=== PATIENT | male | born 1980 | race American Indian/Alaskan Native ===

== ENCOUNTER 2017-01-13 16:40 | Emergency (ER) | payer OTHER ==
[2017-01-13] MEDS ORDERED: PEPCID PO ONE (19:40)
[2017-01-13] MEDS ORDERED: DECADRON IM STA (19:40)
[2017-01-13] MEDS ORDERED: DECADRON ONE (19:51)
--- NOTE | 2017-01-13 20:36 | Emergency Department Report ---
Entered by MINE CARTER, acting as scribe for SOFÍA NOEL PA. ED Rash HPI - HPI Chief Complaint: Allergic Reaction Stated Complaint: INSECT BITE ON ABD Time Seen by Provider: 01/13/17 19:28 Duration: 1 Day Location: Abdomen Suspected Cause: Insect Rash Symptoms: Yes Itching, No Facial Swelling, No Tongue/Oral Swelling, No Breathing Difficulties, No Choking Sensation, No Wheezing/Dyspnea, No Peeling, No Blistering, No Fever, No Lightheaded, No Malaise, No Myalgias Severity: mild Other History: 36 y/o male presents to the ED c/o rash due to insect bite on abdomen yesterday. Asociated sympotoms include redness, swelling, pain and itching but he denies SOB, chest pain, fever, chills, nausea, vomiting. Pain is described as 8/10 on a severity scale. Denies taking any meds [employer]. No alleviating or aggravating factors. NKDA. ED Review of Systems ROS: Stated complaint: INSECT BITE ON ABD Other details as noted in HPI Comment: All other systems reviewed and negative Constitutional: denies: chills, fever ENT: denies: throat pain, congestion Respiratory: denies: cough, shortness of breath, SOB with exertion, SOB at rest , stridor, wheezing Cardiovascular: denies: chest pain Gastrointestinal: denies: abdominal pain, nausea, vomiting, diarrhea Musculoskeletal: denies: back pain, arthralgia, myalgia Skin: rash, other (redness, swelling, itching) Neurological: denies: headache, paresthesias, abnormal gait ED Past Medical Hx - Past Medical History Previous Medical History?: Yes Hx Hypertension: Yes Additional medical history: allergies - Surgical History Past Surgical History?: No - Family History Family history: no significant - Social History Smoking Status: Never Smoker Substance Use Type: None - Medications Home Medications: Home Medications Medication Instructions Recorded Confirmed Last Taken Type Hyoscyamine Subl [Levsin Sl] 0.125 mg SL Q4HR PRN #12 tablet 05/19/13 Unknown Rx Ondansetron [Zofran Odt] 4 mg PO QID #12 tab.rapdis 05/19/13 Unknown Rx Famotidine [Pepcid] 10 mg PO BID #20 tablet 06/08/13 Unknown Rx Metoclopramide HCl [Reglan] 10 mg PO TID PRN #20 tablet 06/09/13 Unknown Rx Acetaminophen/Codeine 1 tab PO Q6H PRN #15 tab 04/15/14 Unknown Rx [Acetaminophen-Codeine #3 TAB] Ondansetron [Zofran Odt] 4 mg PO Q6H #12 tab.rapdis 04/15/14 Unknown Rx Penicillin Vk [Veetids TAB] 500 mg PO BID #20 tablet 04/15/14 Unknown Rx Cephalexin [Keflex] 500 mg PO Q12HR #14 cap 01/13/17 Unknown Rx Famotidine [Pepcid] 40 mg PO QDAY #5 tablet 01/13/17 Unknown Rx hydrOXYzine HCL [Atarax] 25 mg PO Q6HR PRN #12 tablet 01/13/17 Unknown Rx predniSONE [Deltasone] 50 mg PO QDAY #5 tab 01/13/17 Unknown Rx Rash Exam - Exam General: Vital signs noted. No distress. Alert and acting appropriately. This is a 36-year-old male well-nourished well-developed in no acute distress HEENT: No Periorbital Edema, No Conjuctival Injection, No Chemosis, No Perioral Edema, No Tongue Edema, No Uvular Edema, No Compromised Airway, No Drooling Lungs: Yes Good Air Exchange (clear to auscultate bilaterally. No rhonchi wheezes or rales), No Wheezes, No Ronchi, No Stridor, No Cough, No Labored Respirations, No Retractions, No Use of Accessory Muscles, No Other Abnormal Lung Sounds Heart: Yes Regular, No Murmur Skin: Yes Urticarial Rash (umbilical area to mid lower abdomen), Yes Tenderness (at rash site), Yes Erythema (umbilical area to mid lower abdomen), Yes Edema ( umbilical area to mid lower abdomen), No Maculopapular Rash, No Morbilliform rash, No Bulla(e), No Excoriations, No Weeping, No Encrustations, No Other Other: Positive: Abdomen Normal, Neurologic Normal, Musculoskeletal Normal ED Course Vital Signs 01/13/17 18:03 Temperature 98.9 F Pulse Rate 83 Respiratory 16 Rate Blood Pressure 142/100 O2 Sat by Pulse 100 Oximetry Vital Signs 01/13/17 01/13/17 18:03 20:24 Temperature 98.9 F Pulse Rate 83 Respiratory 16 Rate Blood Pressure 142/100 Blood Pressure 140/92 [Left] O2 Sat by Pulse 100 Oximetry - Reevaluation(s) Reevaluation #1: 01/13/17 20:24 She given Decadron 10 mg IM in the emergency room along with Pepcid 40 mg by mouth for allergic reaction. ED Medical Decision Making - Medical Decision Making ED course: With minor allergic reaction from insect bite. Said this And yesterday when he was doing yard work but he is not sure what kind of insect it was. Ordering redness and swelling to his abdominal area with itching. Physical findings for urticarial rash with pinpoint open into Center for rash. Will cover for allergic reaction and mild cellulitis. Patient received Decadron 10 mg IM and Pepcid 40 mg by mouth in emergency room. Discharge home to follow-up with his primary care physician in 2 days and if he does not have one to follow up at [facility]. PT had no respiratory symptoms. Medication: Patient given Pepcid 40 mg by mouth and Decadron 10 mg IM and emergency room. He'll be covered for cellulitis and allergic reaction and was given prescription for prednisone, Keflex, Atarax and Pepcid Assessment/plan 1. Minor allergic reaction versus cellulitis 2. Insect bite 3. Pruritus Patient discharged home in stable condition to follow up with primary care physician in 2 days or return to the emergency room if worsening Critical care attestation.: If time is entered above; I have spent that time in minutes in the direct care of this critically ill patient, excluding procedure time. ED Disposition Clinical Impression: Cellulitis of abdominal wall, Pruritus of skin Minor allergic reaction Qualifiers: Encounter type: initial encounter Qualified Code(s): T78.40XA - Allergy, unspecified, initial encounter Insect bite Qualifiers: Encounter type: initial encounter Qualified Code(s): W57.XXXA - Bitten or stung by nonvenomous insect and other nonvenomous arthropods, initial encounter Disposition: -01 TO HOME OR SELFCARE Is pt being admited?: No Does the pt Need Aspirin: No Condition: Stable Instructions: Cellulitis (ED), Itchy Skin (ED), Insect Bite or Sting (ED), Urticaria (ED) Additional Instructions: Please take medication as instructed Follow up with primary care physician or [facility] in 2 days If you develop, coughing, wheezing, shortness of breath, increased redness abdomen and her difficulty breathing please return to the emergency room [facility] Prescriptions: Cephalexin [Keflex] 500 mg PO Q12HR #14 cap Famotidine [Pepcid] 40 mg PO QDAY #5 tablet hydrOXYzine HCL [Atarax] 25 mg PO Q6HR PRN #12 tablet PRN Reason: Itching predniSONE [Deltasone] 50 mg PO QDAY #5 tab Referrals: PRIMARY CARE, [Primary Care Provider] - 01/15/17 [facility] [Outside] - 01/15/17 Forms: Accompanied Note, Work/School Release Form(ED) This documentation as recorded by the RAUL gunderson ELIZABETH,accurately reflects the service I personally performed and the decisions made by me,SOFÍA NOEL PA.
[2017-01-13 21:23] VITALS: BP 137/85
== END 2017-01-13 21:23 | disposition home or self-care (01) ==
LOC: ED 16:40
DX: L03.311 Cellulitis of abdominal wall (principal); T78.40XA Allergy, unspecified, initial encounter; L29.9 Pruritus, unspecified; I10 Essential (primary) hypertension; W57.XXXA Bitten or stung by nonvenomous insect and other nonvenomous arthropods, initial encounter; Y93.89 Activity, other specified; Y99.9 Unspecified external cause status; Y92.89 Other specified places as the place of occurrence of the external cause
CPT/HCPCS: 96372; 99282; J1100

== ENCOUNTER 2017-12-01 19:38 | Emergency (ER) | payer OTHER ==
[2017-12-01] MEDS ORDERED: ZOFRAN ONE (20:14)
[2017-12-01] MEDS ORDERED: ZOFRAN IV ONE (20:31)
[2017-12-01 21:32] LABS: Basophils # (Auto) 0.1 K/mm3 (0.0-0.1); Basophils % (Auto) 0.7 % (0.0-1.8); Eosinophils # (Auto) 0.2 K/mm3 (0.0-0.4); Eosinophils % (Auto) 1.7 % (0.0-4.3); Hematocrit 38.9 % (35.5-45.6); Hemoglobin 12.8 gm/dl (11.8-15.2); Lymphocytes # (Auto) 3.1 K/mm3 (1.2-5.4); Lymphocytes % (Auto) 23.9 % (13.4-35.0); Mean Corpuscular HGB Conc 33 % (32-34); Mean Corpuscular Hemoglobin 30 pg (28-32); Mean Corpuscular Volume 90 fl (84-94); Monocytes % (Auto) 7.3 % (0.0-7.3); Platelet Count 352 K/mm3 (140-440); Red Cell Distribution Width 13.5 % (13.2-15.2)
[2017-12-01 21:56] LABS: Alanine Aminotransferase 19 units/L (7-56); Albumin 4.3 g/dL (3.9-5); BUN/Creatinine Ratio 17; Blood Urea Nitrogen 19 mg/dL (9-20); Calcium 9.6 mg/dL (8.4-10.2); Hemolysis Index 14
[2017-12-02] MEDS ORDERED: LIDOCAINE VISCOUS 2% PO ONE (02:30)
[2017-12-02] MEDS ORDERED: ALUM-MAG HYDROX-SIMETH 200-200-20MG/5ML PO ONE (02:30)
[2017-12-02] MEDS ORDERED: BENTYL PO ONE (02:30)
--- NOTE | 2017-12-02 02:30 | Emergency Department Report ---
Vomiting/Diarrhea - HPI Chief Complaint: Nausea/Vomiting/Diarrhea Stated Complaint: ABDOMINAL PAIN,VOMITING Time Seen by Provider: 12/02/17 02:17 Duration: Today Severity: mild Nausea/Vomiting Severity: Moderate Diarrhea Severity: None Pain Location: Generalized Pain Severity: Mild (10/10 and cramping) Symptoms: Yes Able to Tolerate Fluids, Yes Recent Unusual Foods (chicken pot pie ), No Watery Diarrhea, No Bloody diarrhea, No Fever, No Recent Untreated Water, No Recent use of Antibiotics, No Family w/ Similar Symptoms, No Contacts w/ Similar Symptoms, No Rash, No Hematuria, No Recent URI Symptoms Other History: This is a 37-year-old male here reports that he had some chicken pie leftover and he ate at 1801 hour later he started having vomiting, nausea and some abdominal cramping. Abdominal cramping is 10 out of 10 but better now. He said he vomited 3 times today and had nausea. Denies any fever or chills. Patient blood pressure is 152/107 and has history of high blood pressure without any medication. Denies any urinary burning frequency or urgency. Denies any blood in his urine. Denies any back pain. Denies any chest pain or shortness of breath. Pain is crampy and intermittent. No medication taken. ED Review of Systems ROS: Stated complaint: ABDOMINAL PAIN,VOMITING Other details as noted in HPI Constitutional: denies: chills, fever Eyes: denies: eye discharge ENT: denies: ear pain, throat pain, congestion Respiratory: denies: cough, shortness of breath, SOB with exertion, SOB at rest , wheezing Cardiovascular: denies: chest pain, palpitations, edema, syncope Gastrointestinal: abdominal pain, nausea, vomiting. denies: diarrhea, constipation, hematemesis, melena, hematochezia Genitourinary: denies: urgency, dysuria, frequency, hematuria, discharge Musculoskeletal: denies: back pain, joint swelling, arthralgia, myalgia Skin: denies: rash, lesions Neurological: denies: headache, weakness, vertigo ED Past Medical Hx - Past Medical History Previous Medical History?: Yes Hx Hypertension: Yes Additional medical history: allergies - Surgical History Past Surgical History?: No - Family History Family history: hypertension - Social History Smoking Status: Never Smoker Substance Use Type: None - Medications Home Medications: Home Medications Medication Instructions Recorded Confirmed Last Taken Type Hyoscyamine Subl [Levsin Sl] 0.125 mg SL Q4HR PRN #12 tablet 05/19/13 Unknown Rx Ondansetron [Zofran Odt] 4 mg PO QID #12 tab.rapdis 05/19/13 Unknown Rx Famotidine [Pepcid] 10 mg PO BID #20 tablet 06/08/13 Unknown Rx Metoclopramide HCl [Reglan] 10 mg PO TID PRN #20 tablet 06/09/13 Unknown Rx Acetaminophen/Codeine 1 tab PO Q6H PRN #15 tab 04/15/14 Unknown Rx [Acetaminophen-Codeine #3 TAB] Ondansetron [Zofran Odt] 4 mg PO Q6H #12 tab.rapdis 04/15/14 Unknown Rx Penicillin Vk [Veetids TAB] 500 mg PO BID #20 tablet 04/15/14 Unknown Rx Cephalexin [Keflex] 500 mg PO Q12HR #14 cap 01/13/17 Unknown Rx Famotidine [Pepcid] 40 mg PO QDAY #5 tablet 01/13/17 Unknown Rx hydrOXYzine HCL [Atarax] 25 mg PO Q6HR PRN #12 tablet 01/13/17 Unknown Rx predniSONE [Deltasone] 50 mg PO QDAY #5 tab 01/13/17 Unknown Rx Dicyclomine [Bentyl] 20 mg PO Q8H 3 Days #9 tablet 12/02/17 Unknown Rx Promethazine [Phenergan TAB] 25 mg PO Q8HR PRN #12 tab 12/02/17 Unknown Rx Vomiting Diarrhea Exam - Exam General: Vital signs noted. No distress. Alert and acting appropriately. This is a 29-year-old male, patient is nontoxic in appearance. He is alert oriented in no acute distress. HEENT: Yes Moist Mucous Membranes (moist, uvula midline and oral airways patent) , No Pharyngeal Erythema, No Pharyngeal Exudates, No Rhinorrhea, No Conjuctival Injection, No Frontal Tenderness, No Maxillary Tenderness Neck: No Adenopathy, No Rigidity (supple, full range of motion) Lungs: Yes Clear Lung Sounds (CTAB), Yes Good Air Exchange, No Wheezes, No Stridor, No Cough, No Nasal Flaring, No Retractions, No Use of Accessory Muscles Heart exam: Regular: Yes (S1-S2 ), Murmur: No, Tachycardia: Yes (108) Abdomen: Tenderness: No ( NTTP in all quadrants), Peritoneal Signs: No, Distention: No, Hyperactive Bowel sounds: No Skin exam: Rash: No, Edema: No, Normal turgor: Yes Neurologic: Alert and oriented 3. No focal deficits. Musculoskeletal: Unremarkable. ED Course Vital Signs 12/01/17 19:37 Temperature 99.1 F Pulse Rate 108 H Respiratory 18 Rate Blood Pressure 152/107 O2 Sat by Pulse 98 Oximetry Vital Signs 12/01/17 12/02/17 12/02/17 19:37 02:58 03:12 Temperature 99.1 F Pulse Rate 108 H 91 H Respiratory 18 Rate Blood Pressure 152/107 Blood Pressure 132/84 [Right] O2 Sat by Pulse 98 99 Oximetry - Reevaluation(s) Reevaluation #1: 12/02/17 02:31 Patient given Zofran 8 mg IV in triage or any voice that is nauseous relief. Occasional stomach cramp . Started on oral hydration, Bentyl 40 mg by mouth, lidocaine 15 cc by mouth and Maalox 15 cc by mouth. I will reevaluate. Reevaluation #2: 12/02/17 03:05 Patient better after Bentyl, lidocaine and Maalox by mouth. He is able to tolerate 4 cups of apple juice without any nausea vomiting or abdominal cramping. ED Medical Decision Making - Lab Data Result diagrams: 12/01/17 20:42 12/01/17 20:42 Lab Results 12/01/17 12/01/17 Range/Units 20:42 20:42 WBC 13.0 H (4.5-11.0) K/mm3 RBC 4.30 (3.65-5.03) M/mm3 Hgb 12.8 (11.8-15.2) gm/dl Hct 38.9 (35.5-45.6) % MCV 90 (84-94) fl MCH 30 (28-32) pg MCHC 33 (32-34) % RDW 13.5 (13.2-15.2) % Plt Count 352 (140-440) K/mm3 Lymph % (Auto) 23.9 (13.4-35.0) % [place] % (Auto) 7.3 (0.0-7.3) % Eos % (Auto) 1.7 (0.0-4.3) % Baso % (Auto) 0.7 (0.0-1.8) % Lymph # 3.1 (1.2-5.4) K/mm3 [place] # 1.0 H (0.0-0.8) K/mm3 Eos # 0.2 (0.0-0.4) K/mm3 Baso # 0.1 (0.0-0.1) K/mm3 Seg Neutrophils % 66.4 (40.0-70.0) % Seg Neutrophils # 8.6 H (1.8-7.7) K/mm3 Sodium 138 (137-145) mmol/L Potassium 3.9 (3.6-5.0) mmol/L Chloride 99.0 (98-107) mmol/L Carbon Dioxide 22 (22-30) mmol/L Anion Gap 21 mmol/L BUN 19 (9-20) mg/dL Creatinine 1.1 (0.8-1.5) mg/dL Estimated GFR > 60 ml/min BUN/Creatinine Ratio 17 % Glucose 214 H (75-100) mg/dL Calcium 9.6 (8.4-10.2) mg/dL Total Bilirubin 0.40 (0.1-1.2) mg/dL AST 24 (5-40) units/L ALT 19 (7-56) units/L Alkaline Phosphatase 70 (35-129) units/L Total Protein 8.0 (6.3-8.2) g/dL Albumin 4.3 (3.9-5) g/dL Albumin/Globulin Ratio 1.2 % - Medical Decision Making This is a 37-year-old male patient here reports that he ate leftover chicken pot pie this evening and one hour later he started having nausea and vomiting with abdominal cramping. He is here to be evaluated. Patient was examined by myself and abdominal exam is normal. He had CBC and CMP done and values are stable. Patient was orally hydrated in emergency room with 3 cups of juice and he tolerated well without any nausea vomiting or abdominal cramping. Patient received Zofran 8 mg IV and triage which relieved his nausea, he had no episode of vomiting while in the emergency room. He received Bentyl 40 mg by mouth for several cramping and Maalox 15 mL, lidocaine 15 mL and stomach cramping is relieved. I discussed this patient as diagnosis, laboratory findings and treatment plan and he voiced understanding. She would mild tachycardia when he came in which has resolved and his blood pressure was slightly elevated but is better. Patient with nausea and vomiting suspect from food poisoning-this is better after oral hydration, Zofran IV Abdominal cramping-better after Maalox, lidocaine and Bentyl Patient education and medication, treatment plan, labs, diagnosis, BRAT diet. I discussed with him that if his symptoms return to return to emergency room [facility] otherwise follow up with primary care physician if he does not have a primary care physician to follow up with [facility] in 2 days and he voiced understanding. Discharged home in stable condition, vital signs are stable and he is afebrile. He said he is better. Nausea and vomiting has resolved with abdominal cramping. He is to follow-up at [facility] in 2 days. Discharged home with prescription for Bentyl, Phenergan. - Differential Diagnosis food poisoning, acute nausea and vomiting,Electrolyte imbalance Critical care attestation.: If time is entered above; I have spent that time in minutes in the direct care of this critically ill patient, excluding procedure time. ED Disposition Clinical Impression: Abdominal cramping Nausea & vomiting Qualifiers: Vomiting type: unspecified Vomiting Intractability: non-intractable Qualified Code(s): R11.2 - Nausea with vomiting, unspecified Disposition: DC-01 TO HOME OR SELFCARE Is pt being admited?: No Does the pt Need Aspirin: No Condition: Stable Instructions: Abdominal Pain (ED), Acute Nausea and Vomiting (ED) Additional Instructions: Please eat low residual food such as banana, rice, applesauce and toast for the next 72 hours to rest his stomach. Avoid spicy and carbonated beverages over the next 72 hours Increase her fluid intake Take Bentyl for abdominal cramping and Phenergan for nausea and her vomiting blood please do not drive or operate heavy machinery while taking Phenergan as it causes drowsiness Follow-up at [facility] primary care in 2 days. Few symptoms return, or worsens, Return to emergency room if AP Prescriptions: Dicyclomine [Bentyl] 20 mg PO Q8H 3 Days #9 tablet Promethazine [Phenergan TAB] 25 mg PO Q8HR PRN #12 tab PRN Reason: Nausea And Vomiting Referrals: PRIMARY CARE, [Primary Care Provider] - 12/04/17 [facility] [Outside] - 12/04/17 Forms: Work/School Release Form(ED)
[2017-12-02 03:12] VITALS: BP 132/84
== END 2017-12-02 03:41 | disposition home or self-care (01) ==
LOC: ED 19:38
DX: R10.84 Generalized abdominal pain (principal); R11.2 Nausea with vomiting, unspecified; I10 Essential (primary) hypertension
CPT/HCPCS: 36415; 80053; 85025; 96374; 99283; J2405

== ENCOUNTER 2017-12-23 21:51 | Emergency (ER) | payer OTHER ==
[2017-12-23] MEDS ORDERED: NACL 0.9% 1000 ML 1,000 ML IV ONE (22:28)
[2017-12-23] MEDS ORDERED: ZOFRAN IM ONE (22:29)
[2017-12-23 23:10] LABS: Basophils % (Auto) 0.7 % (0.0-1.8); Eosinophils # (Auto) 0.3 K/mm3 (0.0-0.4); Eosinophils % (Auto) 3.9 % (0.0-4.3); Hematocrit 42.6 % (35.5-45.6); Lymphocytes # (Auto) 2.5 K/mm3 (1.2-5.4); Lymphocytes % (Auto) 35.7 % (13.4-35.0); Mean Corpuscular HGB Conc 33 % (32-34); Mean Corpuscular Hemoglobin 30 pg (28-32); Mean Corpuscular Volume 91 fl (84-94); Monocytes # (Auto) 0.8 K/mm3 (0.0-0.8); Monocytes % (Auto) 12.2 % (0.0-7.3); Platelet Count 297 K/mm3 (140-440); Red Blood Count 4.67 M/mm3 (3.65-5.03); Red Cell Distribution Width 13.2 % (13.2-15.2)
[2017-12-23 23:19] LABS: Alanine Aminotransferase 22 units/L (7-56); Albumin 4.5 g/dL (3.9-5); BUN/Creatinine Ratio 11; Blood Urea Nitrogen 14 mg/dL (9-20); Calcium 9.5 mg/dL (8.4-10.2); Hemolysis Index 14; Lipase 28 units/L (13-60)
[2017-12-23] MEDS ORDERED: TORADOL IV ONE (23:38)
[2017-12-23] MEDS ORDERED: ZOFRAN IV ONE (23:41)
[2017-12-23] MEDS ORDERED: ATIVAN IV ONE (23:41)
--- NOTE | 2017-12-23 23:58 | Emergency Department Report ---
HPI - General Chief Complaint: Abdominal Pain Time Seen by Provider: 12/23/17 23:35 - HPI HPI: The patient is a 37-year-old male who presents for evaluation of abdominal pain. The patient reports upper abdominal pain for the past one hour, constant since onset, cramping in quality, exacerbated with dry heaving, and associated with nausea and multiple episodes of nonbilious, nonbloody emesis. He shares that his symptoms began shortly after consuming fried chicken purchased from the [employer]. The patient denies fever, chills, night sweats, diarrhea, blood in the stool, dark tarry stool, dysuria, hematuria, flank pain, genital discharge, inability to pass flatus. ED Past Medical Hx - Past Medical History Hx Hypertension: Yes Additional medical history: allergies - Surgical History Past Surgical History?: No - Social History Smoking Status: Never Smoker Substance Use Type: None - Medications Home Medications: Home Medications Medication Instructions Recorded Confirmed Last Taken Type Hyoscyamine Subl [Levsin Sl] 0.125 mg SL Q4HR PRN #12 tablet 05/19/13 Unknown Rx Ondansetron [Zofran Odt] 4 mg PO QID #12 tab.rapdis 05/19/13 Unknown Rx Famotidine [Pepcid] 10 mg PO BID #20 tablet 06/08/13 Unknown Rx Metoclopramide HCl [Reglan] 10 mg PO TID PRN #20 tablet 06/09/13 Unknown Rx Acetaminophen/Codeine 1 tab PO Q6H PRN #15 tab 04/15/14 Unknown Rx [Acetaminophen-Codeine #3 TAB] Ondansetron [Zofran Odt] 4 mg PO Q6H #12 tab.rapdis 04/15/14 Unknown Rx Penicillin Vk [Veetids TAB] 500 mg PO BID #20 tablet 04/15/14 Unknown Rx Cephalexin [Keflex] 500 mg PO Q12HR #14 cap 01/13/17 Unknown Rx Famotidine [Pepcid] 40 mg PO QDAY #5 tablet 01/13/17 Unknown Rx hydrOXYzine HCL [Atarax] 25 mg PO Q6HR PRN #12 tablet 01/13/17 Unknown Rx predniSONE [Deltasone] 50 mg PO QDAY #5 tab 01/13/17 Unknown Rx Dicyclomine [Bentyl] 20 mg PO Q8H 3 Days #9 tablet 12/02/17 Unknown Rx Promethazine [Phenergan TAB] 25 mg PO Q8HR PRN #12 tab 12/02/17 Unknown Rx Acetaminophen/Codeine [Tylenol #3] 1 tab PO Q6H PRN #10 tab 12/24/17 Unknown Rx Ondansetron [Zofran TAB] 4 mg PO Q8HR PRN #20 tablet 12/24/17 Unknown Rx ED Review of Systems ROS: Stated complaint: ABD CRAMPS Other details as noted in HPI Constitutional: denies: fever ENT: denies: throat or neck pain Respiratory: denies: cough, shortness of breath Cardiovascular: denies: chest pain Endocrine: denies unexplained weight loss or gain Gastrointestinal: reports abdominal pain, nausea Genitourinary: denies: dysuria Musculoskeletal: denies: leg swelling Skin: denies: rash Neurological: denies: headache Hematological/Lymphatic: denies: easy bleeding or easy bruising Psych: denies sadness or hopelessness Physical Exam - Physical Exam Vital Signs: Vital Signs 12/23/17 12/23/17 22:24 23:24 Temperature 98 F Pulse Rate 104 H 90 Respiratory 16 22 Rate Blood Pressure 144/94 156/106 O2 Sat by Pulse 100 97 Oximetry Physical Exam: General: well-nourished, well-developed, no acute distress Head: Normocephalic, atraumatic Eyes: normal sclera ENT: Mucous membranes are pale and dry Neck: No neck stiffness, no cervical adenopathy Respiratory: Breath sounds equal bilaterally, no wheezing, rales, or rhonchi Cardio: S1 and S2 present, no murmurs, rubs, gallops, capillary refill is delayed Abdomen: Normoactive bowel sounds, soft abdomen, epigastric tenderness to palpation present, no rigidity, no guarding or rebound tenderness Musc: No pitting edema Skin: No rash Neuro: no facial drooping, normal speech Psych: Normal affect ED Course Vital Signs 12/23/17 12/23/17 22:24 23:24 Temperature 98 F Pulse Rate 104 H 90 Respiratory 16 22 Rate Blood Pressure 144/94 156/106 O2 Sat by Pulse 100 97 Oximetry ED Medical Decision Making - Lab Data Result diagrams: 12/23/17 22:39 12/23/17 22:39 - Medical Decision Making The patient was seen and examined by myself. The patient is placed on a conveyor monitor and continuous pulse ox. On initial evaluation, the patient was found to be in no distress. Evaluation orders are placed. IV access is established and the patient is given 1 L normal saline fluid bolus and Zofran for nausea, and IV analgesic for pain. Lab results were non-concerning including WBC, hemoglobin, hematocrit, electrolytes, renal function, LFTs, lipase, and urinalysis. The patient was reevaluated and reported that their symptoms were markedly improved. The patient is stable for discharge with outpatient follow-up. The patient is given follow-up and return instructions. The patient expressed understanding and agreed with the plan. The patient is discharged in stable condition. Critical care attestation.: If time is entered above; I have spent that time in minutes in the direct care of this critically ill patient, excluding procedure time. ED Disposition Clinical Impression: Dehydration, Abdominal pain, acute, epigastric, Nausea and vomiting in adult Disposition: DC-01 TO HOME OR SELFCARE Is pt being admited?: No Does the pt Need Aspirin: No Condition: Stable Instructions: Food Poisoning (ED), Gastroenteritis (ED) Referrals: [facility] [Outside] - 3-5 Days Time of Disposition: 23:58
[2017-12-24 02:18] VITALS: BP 102/70
== END 2017-12-24 02:15 | disposition home or self-care (01) ==
LOC: ED 21:51
DX: E86.0 Dehydration (principal); R10.13 Epigastric pain; R11.2 Nausea with vomiting, unspecified; I10 Essential (primary) hypertension
CPT/HCPCS: 36415; 80053; 83690; 85025; 96361; 96372; 96374; 96375; 99284; J1885; J2060; J2405; J7030

== ENCOUNTER 2018-01-08 08:29 | Emergency (ER) | payer OTHER ==
[2018-01-08] MEDS ORDERED: ZOFRAN ODT PO ONE (08:52)
[2018-01-08] MEDS ORDERED: ZOFRAN ODT ONE (08:54)
[2018-01-08] MEDS ORDERED: TORADOL IV ONE (10:33)
[2018-01-08] MEDS ORDERED: ZOFRAN IV ONE (10:33)
[2018-01-08] MEDS ORDERED: NACL 0.9% 1000 ML 1,000 ML IV ONE ×2 (10:33→12:12)
[2018-01-08] MEDS ORDERED: PEPCID IV ONE (10:34)
--- NOTE | 2018-01-08 10:37 | Emergency Department Report ---
Blank Doc - Documentation Documentation: 37-year-old male with a past medical history hypertension presents to the hospital complains of recurrent nausea, vomiting, and diarrhea started this morning. Patient was seen here on December 24 with similar symptoms after eating chicken. He reports he felt better after discharge and did not even really need to take any of the medication prescribed with the exception of 2 doses of Tylenol No. 3. Patient tried to take the Zofran this a.m. but continues to vomit. Complains of moderate left-sided cramping abdominal pain. He has nausea , vomiting, and diarrhea. He denies hematemesis, hematochezia, fever, recent travel, or sick contacts. No previous abdominal surgeries. Patient has mild left-sided abd tenderness. Continues to have active vomiting despite receiving by mouth Zofran prior to my evaluation Patient was here in November and December with nausea, vomiting, and diarrhea. Labs ordered CT ordered Zofran, normal saline, Toradol, and Pepcid initiated Mid level to follow
[2018-01-08 10:55] LABS: Basophils # (Auto) 0.1 K/mm3 (0.0-0.1); Basophils % (Auto) 0.4 % (0.0-1.8); Eosinophils % (Auto) 0.3 % (0.0-4.3); Hematocrit 44.5 % (35.5-45.6); Hemoglobin 14.5 gm/dl (11.8-15.2); Lymphocytes # (Auto) 1.3 K/mm3 (1.2-5.4); Lymphocytes % (Auto) 11.2 % (13.4-35.0); Mean Corpuscular HGB Conc 33 % (32-34); Mean Corpuscular Hemoglobin 29 pg (28-32); Mean Corpuscular Volume 90 fl (84-94); Monocytes % (Auto) 8.2 % (0.0-7.3); Platelet Count 389 K/mm3 (140-440); Red Blood Count 4.96 M/mm3 (3.65-5.03)
[2018-01-08 11:19] LABS: Alanine Aminotransferase 32 units/L (7-56); Albumin 4.5 g/dL (3.9-5); BUN/Creatinine Ratio 13; Blood Urea Nitrogen 15 mg/dL (9-20); Calcium 9.6 mg/dL (8.4-10.2); Hemolysis Index 4
[2018-01-08 11:40] LABS: Lipase 24 units/L (13-60)
--- NOTE | 2018-01-08 11:40 | Emergency Department Report ---
Vomiting/Diarrhea - HPI Chief Complaint: Abdominal Pain Stated Complaint: STOMACH CRAMPS Time Seen by Provider: 01/08/18 10:21 Duration: 1 Day Severity: mild Nausea/Vomiting Severity: Mild Diarrhea Severity: None Pain Location: Left Sided Pain Severity: Mild Symptoms: Yes Able to Tolerate Fluids, No Watery Diarrhea, No Bloody diarrhea, No Fever, No Recent Unusual Foods, No Recent Untreated Water, No Recent use of Antibiotics, No Family w/ Similar Symptoms, No Contacts w/ Similar Symptoms, No Rash, No Hematuria, No Recent URI Symptoms Other History: This is a 37-year-old male presents with nausea , vomiting, and diarrhea which started this morning. No previous abdominal surgeries. Past medical history of hypertension. Patient was seen here on December 24 with similar symptoms after eating chicken. He was discharged with medication. Patient states he felt better and dign't have to take medication. He ate [place] food last night and felt fine. He started having left sided abdominal pain this morning and on the way here started vomiting. Patient states he took zofran and tylenol with codeine that was prescribed on last visit. Complains of moderate left-sided cramping abdominal pain. He has nausea , vomiting, and diarrhea. He denies hematemesis, hematochezia, fever, recent travel, or sick contacts. ED Review of Systems ROS: Stated complaint: STOMACH CRAMPS Other details as noted in HPI Constitutional: denies: chills, fever Respiratory: denies: cough, shortness of breath, wheezing Cardiovascular: denies: chest pain, palpitations Gastrointestinal: abdominal pain (left-sided abdominal pain), nausea, vomiting. denies: diarrhea Genitourinary: denies: urgency, dysuria Neurological: denies: headache, weakness, paresthesias Psychiatric: denies: anxiety, depression ED Past Medical Hx - Past Medical History Previous Medical History?: Yes Hx Hypertension: Yes Additional medical history: allergies - Surgical History Past Surgical History?: No - Social History Smoking Status: Never Smoker Substance Use Type: None - Medications Home Medications: Home Medications Medication Instructions Recorded Confirmed Last Taken Type Hyoscyamine Subl [Levsin Sl] 0.125 mg SL Q4HR PRN #12 tablet 05/19/13 Unknown Rx Ondansetron [Zofran Odt] 4 mg PO QID #12 tab.rapdis 05/19/13 Unknown Rx Famotidine [Pepcid] 10 mg PO BID #20 tablet 06/08/13 Unknown Rx Metoclopramide HCl [Reglan] 10 mg PO TID PRN #20 tablet 06/09/13 Unknown Rx Acetaminophen/Codeine 1 tab PO Q6H PRN #15 tab 04/15/14 Unknown Rx [Acetaminophen-Codeine #3 TAB] Ondansetron [Zofran Odt] 4 mg PO Q6H #12 tab.rapdis 04/15/14 Unknown Rx Penicillin Vk [Veetids TAB] 500 mg PO BID #20 tablet 04/15/14 Unknown Rx Famotidine [Pepcid] 40 mg PO QDAY #5 tablet 01/13/17 Unknown Rx cephALEXin [Keflex] 500 mg PO Q12HR #14 cap 01/13/17 Unknown Rx hydrOXYzine HCL [Atarax] 25 mg PO Q6HR PRN #12 tablet 01/13/17 Unknown Rx predniSONE [Deltasone] 50 mg PO QDAY #5 tab 01/13/17 Unknown Rx Dicyclomine [Bentyl] 20 mg PO Q8H 3 Days #9 tablet 12/02/17 Unknown Rx Promethazine [Phenergan TAB] 25 mg PO Q8HR PRN #12 tab 12/02/17 Unknown Rx Acetaminophen/Codeine [Tylenol #3] 1 tab PO Q6H PRN #10 tab 12/24/17 Unknown Rx Ondansetron [Zofran TAB] 4 mg PO Q8HR PRN #20 tablet 12/24/17 Unknown Rx Vomiting Diarrhea Exam - Exam General: Vital signs noted. No distress. Alert and acting appropriately. HEENT: Yes Moist Mucous Membranes, No Pharyngeal Erythema, No Pharyngeal Exudates, No Rhinorrhea, No Conjuctival Injection, No Frontal Tenderness, No Maxillary Tenderness Neck: No Adenopathy, No Rigidity Lungs: Yes Clear Lung Sounds, Yes Good Air Exchange, No Wheezes, No Stridor, No Cough, No Nasal Flaring, No Retractions, No Use of Accessory Muscles Heart exam: Regular: Yes, Murmur: No, Tachycardia: No Abdomen: Tenderness: Yes (left upper quadrant), Peritoneal Signs: No, Distention : No, Hyperactive Bowel sounds: No Skin exam: Rash: No, Edema: No, Normal turgor: Yes Neurologic: Alert and oriented, no deficits. Musculoskeletal: Unremarkable. ED Course Vital Signs 01/08/18 01/08/18 01/08/18 08:45 10:59 11:00 Temperature 97.8 F Pulse Rate 88 Respiratory 18 18 18 Rate Blood Pressure 151/102 O2 Sat by Pulse 100 Oximetry ED Medical Decision Making - Lab Data Result diagrams: 01/08/18 10:45 01/08/18 10:45 - Radiology Data Radiology results: report reviewed, image reviewed FINAL REPORT EXAM: CT ABDOMEN PELVIS W CON HISTORY: left sided abd pain, reccurrent n,v,d TECHNIQUE: CT of the abdomen and pelvis with IV contrast. Coronal and sagittal reconstructed imaging provided. PRIORS: None currently available. FINDINGS: ABDOMEN: Kidneys: Decreased cortical enhancement of the left kidney identified. Perinephric stranding identified. There is a punctate stone measuring 2.8 mm in the mid left kidney. Left hydronephrosis down to the UVJ where there is a 4.8 x 6.1 mm stone. No hydronephrosis or ureteral stone. No suspicious enhancing lesions. Liver, gallbladder, stomach, spleen, pancreas, and adrenals are unremarkable. There is no abdominal aortic aneurysm. No dissection. Mild atherosclerotic disease noted. IVC is unremarkable. There is no periaortic or retroperitoneal adenopathy or mass. Collapsed left colon limits evaluation for wall thickening. Mild colitis is not entirely excluded. Qftl-cf-khhyjteo stool in the remainder of the colon without wall thickening or inflammatory changes. Terminal ileum is unremarkable. The appendix is not identified. There are no pericecal inflammatory changes. Small bowel loops are unremarkable. No obstructive pattern. No free air. No free fluid. Mesentery is unremarkable. PELVIS: Limited images of the prostate are unremarkable. Bladder is unremarkable. There is no pelvic mass or adenopathy. Inguinal regions are unremarkable. Bones: No suspicious osseous lesions on this limited examination of the skeleton. Metastatic disease better evaluated with bone scan. Degenerative changes are in the spine. IMPRESSION: Left UVJ stone causing obstructive uropathy. Bilateral renal stones. No right hydronephrosis. - Medical Decision Making Patient is stable and was examined by me and Dr. Godoy. Vitals stable. Labs and CT of abdomen and pelvis obtained. Given zofran, morphine, Toradol, and normal saline bolus. Consults a urology Dr. Lopez. Informed of Left UVJ stone causing obstructive uropathy. Bilateral renal stones. No right hydronephrosis. Patient evaluated by Dr. Lopez who decided to have patient f/u in office. Dr. Lopez gave patient prescriptions for zofran, flomax, ultram, and norco. Patient will f/u with him in 1-2 weeks. Discharged home in stable condition. Follow up with PCP in 2-3 days. Critical care attestation.: If time is entered above; I have spent that time in minutes in the direct care of this critically ill patient, excluding procedure time. ED Disposition Clinical Impression: Bilateral kidney stones, Renal colic on left side Disposition: TO HOME OR SELFCARE Is pt being admited?: No Does the pt Need Aspirin: No Condition: Stable Instructions: Kidney Stones (ED), Renal Colic (ED), How to Strain Your Urine ( ED) Additional Instructions: Increase fluid intake to 2 L per day. Change diet to low-protein and a low-sodium diet to prevent reoccurrence. Strain urine to observe for passing stones. Follow-up with primary care doctor in 2-3 days. Follow-up with urology in 1-2 weeks for management of kidney stones. Referrals: LINDSAY LOPEZ MD [Staff Physician] - 3-5 Days GIAN PERKINS MD [Staff Physician] - 3-5 Days Forms: Work/School Release Form(ED) Time of Disposition: 13:24 Print Language: AUSTRIAN
--- NOTE | 2018-01-08 12:05 | Cat Scan Report ---
FINAL REPORT EXAM: CT ABDOMEN PELVIS W CON HISTORY: left sided abd pain, reccurrent n,v,d TECHNIQUE: CT of the abdomen and pelvis with IV contrast. Coronal and sagittal reconstructed imaging provided. PRIORS: None currently available. FINDINGS: ABDOMEN: Kidneys: Decreased cortical enhancement of the left kidney identified. Perinephric stranding identified. There is a punctate stone measuring 2.8 mm in the mid left kidney. Left hydronephrosis down to the UVJ where there is a 4.8 x 6.1 mm stone. No hydronephrosis or ureteral stone. No suspicious enhancing lesions. Liver, gallbladder, stomach, spleen, pancreas, and adrenals are unremarkable. There is no abdominal aortic aneurysm. No dissection. Mild atherosclerotic disease noted. IVC is unremarkable. There is no periaortic or retroperitoneal adenopathy or mass. Collapsed left colon limits evaluation for wall thickening. Mild colitis is not entirely excluded. Ohbg-aj-ihcjnzww stool in the remainder of the colon without wall thickening or inflammatory changes. Terminal ileum is unremarkable. The appendix is not identified. There are no pericecal inflammatory changes. Small bowel loops are unremarkable. No obstructive pattern. No free air. No free fluid. Mesentery is unremarkable. PELVIS: Limited images of the prostate are unremarkable. Bladder is unremarkable. There is no pelvic mass or adenopathy. Inguinal regions are unremarkable. Bones: No suspicious osseous lesions on this limited examination of the skeleton. Metastatic disease better evaluated with bone scan. Degenerative changes are in the spine. IMPRESSION: Left UVJ stone causing obstructive uropathy. Bilateral renal stones. No right hydronephrosis.
[2018-01-08] MEDS ORDERED: MORPHINE IV ONE ×2 (12:16→12:17)
[2018-01-08 12:21] VITALS: BP 151/95
[2018-01-08 13:10] LABS: Bilirubin,Urine NEG (Negative); Blood,Urine NEG (Negative); Color,Urine Colorless (Yellow); Mucus,Urine FEW /HPF; Protein,Urine <15 mg/dL mg/dL (Negative); Urobilinogen,Urine < 2.0 mg/dL (<2.0); WBC,Urine < 1.0 /HPF (0.0-6.0)
--- NOTE | 2018-01-08 13:32 | Consultation ---
History of Present Illness - Reason for Consult Consult date: 01/01/18 - History of Present Illness 37-year-old male with a past medical history hypertension presents to the hospital complains of recurrent nausea, vomiting, and diarrhea started this morning. Patient was seen here on December 24 with similar symptoms after eating chicken. He reports he felt better after discharge and did not even really need to take any of the medication prescribed with the exception of 2 doses of Tylenol No. 3. Patient tried to take the Zofran this a.m. but continues to vomit. Complains of moderate left-sided cramping abdominal pain. He has nausea , vomiting, and diarrhea. He denies hematemesis, hematochezia, fever, recent travel, or sick contacts. No previous abdominal surgeries. + family hx of stones Patient has mild left-sided abd tenderness. Continues to have active vomiting despite receiving by mouth Zofran prior to my evaluation Patient was here in November and December with nausea, vomiting, and diarrhea. CTAP - 4mm left uvj stone, 2mm rt renal stone A/P left uvj stone with pain discussed options - written info given home with ultram, flomax, zofran, norco - scripts on chart given pt strainer appt 1-2 weeks in offfice may need ureteroscopy if symptoms worsen Medications and Allergies Allergies Allergy/AdvReac Type Severity Reaction Status Date / Time No Known Allergies Allergy Unverified 04/24/13 11:18 Home Medications Medication Instructions Recorded Confirmed Last Taken Type Hyoscyamine Subl [Levsin Sl] 0.125 mg SL Q4HR PRN #12 tablet 05/19/13 Unknown Rx Ondansetron [Zofran Odt] 4 mg PO QID #12 tab.rapdis 05/19/13 Unknown Rx Famotidine [Pepcid] 10 mg PO BID #20 tablet 06/08/13 Unknown Rx Metoclopramide HCl [Reglan] 10 mg PO TID PRN #20 tablet 06/09/13 Unknown Rx Acetaminophen/Codeine 1 tab PO Q6H PRN #15 tab 04/15/14 Unknown Rx [Acetaminophen-Codeine #3 TAB] Ondansetron [Zofran Odt] 4 mg PO Q6H #12 tab.rapdis 04/15/14 Unknown Rx Penicillin Vk [Veetids TAB] 500 mg PO BID #20 tablet 04/15/14 Unknown Rx Famotidine [Pepcid] 40 mg PO QDAY #5 tablet 01/13/17 Unknown Rx cephALEXin [Keflex] 500 mg PO Q12HR #14 cap 01/13/17 Unknown Rx hydrOXYzine HCL [Atarax] 25 mg PO Q6HR PRN #12 tablet 01/13/17 Unknown Rx predniSONE [Deltasone] 50 mg PO QDAY #5 tab 01/13/17 Unknown Rx Dicyclomine [Bentyl] 20 mg PO Q8H 3 Days #9 tablet 12/02/17 Unknown Rx Promethazine [Phenergan TAB] 25 mg PO Q8HR PRN #12 tab 12/02/17 Unknown Rx Acetaminophen/Codeine [Tylenol #3] 1 tab PO Q6H PRN #10 tab 12/24/17 Unknown Rx Ondansetron [Zofran TAB] 4 mg PO Q8HR PRN #20 tablet 12/24/17 Unknown Rx Exam - Constitutional Vitals: Temp Pulse Resp BP Pulse Ox 97.7 F 75 15 151/95 100 01/08/18 12:04 01/08/18 12:04 01/08/18 12:04 01/08/18 12:04 01/08/18 12:04 Results - Labs CBC & Chem 7: 01/08/18 10:45 01/08/18 10:45 Labs: Abnormal lab results 01/08/18 01/08/18 Range/Units 10:45 10:45 WBC 11.9 H (4.5-11.0) K/mm3 RDW 13.0 L (13.2-15.2) % Lymph % (Auto) 11.2 L (13.4-35.0) % [place] % (Auto) 8.2 H (0.0-7.3) % [place] # 1.0 H (0.0-0.8) K/mm3 Seg Neutrophils % 79.9 H (40.0-70.0) % Seg Neutrophils # 9.5 H (1.8-7.7) K/mm3 Glucose 124 H (75-100) mg/dL Total Protein 8.3 H (6.3-8.2) g/dL
== END 2018-01-08 14:20 | disposition home or self-care (01) ==
LOC: ED 08:29
DX: N20.2 Calculus of kidney with calculus of ureter (principal); R11.2 Nausea with vomiting, unspecified; I10 Essential (primary) hypertension
CPT/HCPCS: 36415; 74177; 80053; 81001; 83690; 85025; 96361; 96374; 96375; 99284; J1885; J2270; J2405; J7030; Q9967; Q0162

== ENCOUNTER 2019-06-14 00:16 | Emergency (ER) | payer OTHER ==
[2019-06-14 01:47] LABS: Basophils # (Auto) 0.1 K/mm3 (0.0-0.1); Basophils % (Auto) 0.7 % (0.0-1.8); Eosinophils # (Auto) 0.1 K/mm3 (0.0-0.4); Eosinophils % (Auto) 1.4 % (0.0-4.3); Lymphocytes # (Auto) 2.3 K/mm3 (1.2-5.4); Lymphocytes % (Auto) 31.3 % (13.4-35.0); Monocytes # (Auto) 0.6 K/mm3 (0.0-0.8); Monocytes % (Auto) 8.9 % (0.0-7.3)
[2019-06-14 01:57] LABS: Hematocrit 42.3 % (35.5-45.6); Mean Corpuscular HGB Conc 33 % (32-34); Mean Corpuscular Volume 91 fl (84-94); Platelet Count 323 K/mm3 (140-440); Red Blood Count 4.66 M/mm3 (3.65-5.03); Red Cell Distribution Width 13.3 % (13.2-15.2)
[2019-06-14 02:03] LABS: Alanine Aminotransferase 20 units/L (7-56); Albumin 4.4 g/dL (3.9-5); BUN/Creatinine Ratio 13; Blood Urea Nitrogen 16 mg/dL (9-20); Calcium 9.5 mg/dL (8.4-10.2); Hemolysis Index 10
--- NOTE | 2019-06-14 02:55 | Emergency Department Report ---
ED Abdominal Pain HPI - General Chief Complaint: Abdominal Pain Stated Complaint: EMESIS/RT SIDE PAIN Time Seen by Provider: 06/14/19 02:33 Source: patient Mode of arrival: Ambulatory Limitations: No Limitations - History of Present Illness Initial Comments: 38-year-old -Thai male with past medical history hypertension for which she is noncompliant presents emergency department complaining of right flank pain. Reports having a previous history of a renal stone and states that this does feel similar. He reports no fevers, chills, sweats no chest pain or palpitations does has a fifth episode of nausea without vomiting or diarrhea. Reports no dysuria or hematuria. The flank pain is starting to radiate more towards the lower griffiths in the right lower quadrant and a sharp and burning fashion. He is very worried of having another kidney stone like to be evaluated for for that. He reports no foreign travel. Reports no sick contacts. MD Complaint: flank pain Location: R flank Radiation: R flank Severity: severe Quality: sharp Consistency: intermittent Improves With: nothing Worsens With: nothing Associated Symptoms: denies: nausea, vomiting, diarrhea, constipation, dysuria, hematemesis, hematochezia, hematuria, anorexia, syncope - Related Data Previous Rx's Medication Instructions Recorded Last Taken Type Hyoscyamine Subl [Levsin Sl] 0.125 mg SL Q4HR PRN #12 tablet 05/19/13 Unknown Rx Ondansetron [Zofran Odt] 4 mg PO QID #12 tab.rapdis 05/19/13 Unknown Rx Famotidine [Pepcid] 10 mg PO BID #20 tablet 06/08/13 Unknown Rx Metoclopramide HCl [Reglan] 10 mg PO TID PRN #20 tablet 06/09/13 Unknown Rx Acetaminophen/Codeine 1 tab PO Q6H PRN #15 tab 04/15/14 Unknown Rx [Acetaminophen-Codeine #3 TAB] Ondansetron [Zofran Odt] 4 mg PO Q6H #12 tab.rapdis 04/15/14 Unknown Rx Penicillin Vk [Veetids TAB] 500 mg PO BID #20 tablet 04/15/14 Unknown Rx Famotidine [Pepcid] 40 mg PO QDAY #5 tablet 01/13/17 Unknown Rx cephALEXin [Keflex] 500 mg PO Q12HR #14 cap 01/13/17 Unknown Rx hydrOXYzine HCL [Atarax] 25 mg PO Q6HR PRN #12 tablet 01/13/17 Unknown Rx predniSONE [Deltasone] 50 mg PO QDAY #5 tab 01/13/17 Unknown Rx Dicyclomine [Bentyl] 20 mg PO Q8H 3 Days #9 tablet 12/02/17 Unknown Rx Promethazine [Phenergan TAB] 25 mg PO Q8HR PRN #12 tab 12/02/17 Unknown Rx Acetaminophen/Codeine [Tylenol #3] 1 tab PO Q6H PRN #10 tab 12/24/17 Unknown Rx Ondansetron [Zofran TAB] 4 mg PO Q8HR PRN #20 tablet 12/24/17 Unknown Rx Ciprofloxacin HCl [Ciprofloxacin 500 mg PO Q12HR #28 tab 06/14/19 Unknown Rx TAB] Tamsulosin [Flomax] 0.4 mg PO QDAY #10 cap 06/14/19 Unknown Rx traMADoL [Ultram] 50 mg PO Q6HR PRN #20 tablet 06/14/19 Unknown Rx Allergies Allergy/AdvReac Type Severity Reaction Status Date / Time No Known Allergies Allergy Unverified 04/24/13 11:18 ED Review of Systems ROS: Stated complaint: EMESIS/RT SIDE PAIN Other details as noted in HPI Comment: All other systems reviewed and negative ED Past Medical Hx - Past Medical History Previous Medical History?: Yes Hx Hypertension: Yes Additional medical history: allergies - Surgical History Past Surgical History?: No - Social History Smoking Status: Never Smoker Substance Use Type: None - Medications Home Medications: Home Medications Medication Instructions Recorded Confirmed Last Taken Type Hyoscyamine Subl [Levsin Sl] 0.125 mg SL Q4HR PRN #12 tablet 05/19/13 Unknown Rx Ondansetron [Zofran Odt] 4 mg PO QID #12 tab.rapdis 05/19/13 Unknown Rx Famotidine [Pepcid] 10 mg PO BID #20 tablet 06/08/13 Unknown Rx Metoclopramide HCl [Reglan] 10 mg PO TID PRN #20 tablet 06/09/13 Unknown Rx Acetaminophen/Codeine 1 tab PO Q6H PRN #15 tab 04/15/14 Unknown Rx [Acetaminophen-Codeine #3 TAB] Ondansetron [Zofran Odt] 4 mg PO Q6H #12 tab.rapdis 04/15/14 Unknown Rx Penicillin Vk [Veetids TAB] 500 mg PO BID #20 tablet 04/15/14 Unknown Rx Famotidine [Pepcid] 40 mg PO QDAY #5 tablet 01/13/17 Unknown Rx cephALEXin [Keflex] 500 mg PO Q12HR #14 cap 01/13/17 Unknown Rx hydrOXYzine HCL [Atarax] 25 mg PO Q6HR PRN #12 tablet 01/13/17 Unknown Rx predniSONE [Deltasone] 50 mg PO QDAY #5 tab 01/13/17 Unknown Rx Dicyclomine [Bentyl] 20 mg PO Q8H 3 Days #9 tablet 12/02/17 Unknown Rx Promethazine [Phenergan TAB] 25 mg PO Q8HR PRN #12 tab 12/02/17 Unknown Rx Acetaminophen/Codeine [Tylenol #3] 1 tab PO Q6H PRN #10 tab 12/24/17 Unknown Rx Ondansetron [Zofran TAB] 4 mg PO Q8HR PRN #20 tablet 12/24/17 Unknown Rx Ciprofloxacin HCl [Ciprofloxacin 500 mg PO Q12HR #28 tab 06/14/19 Unknown Rx TAB] Tamsulosin [Flomax] 0.4 mg PO QDAY #10 cap 06/14/19 Unknown Rx traMADoL [Ultram] 50 mg PO Q6HR PRN #20 tablet 06/14/19 Unknown Rx ED Physical Exam - General Limitations: No Limitations General appearance: alert, in no apparent distress - Head Head exam: Present: atraumatic, normocephalic - Eye Eye exam: Present: normal appearance, PERRL, EOMI Pupils: Present: normal accommodation - ENT ENT exam: Present: normal exam, normal orophraynx, mucous membranes moist, TM's normal bilaterally - Neck Neck exam: Present: normal inspection, full ROM - Respiratory Respiratory exam: Present: normal lung sounds bilaterally. Absent: respiratory distress, wheezes, rales, rhonchi, chest wall tenderness, accessory muscle use - Cardiovascular Cardiovascular Exam: Present: regular rate, normal rhythm. Absent: systolic murmur, diastolic murmur, rubs, gallop - GI/Abdominal GI/Abdominal exam: Present: soft, normal bowel sounds. Absent: distended, tenderness, guarding, hyperactive bowel sounds, hypoactive bowel sounds, organomegaly, mass - Rectal Rectal exam: Present: deferred - Extremities Exam Extremities exam: Present: normal inspection - Back Exam Back exam: Present: normal inspection. Absent: CVA tenderness (R), CVA tenderness (L), muscle spasm, paraspinal tenderness - Neurological Exam Neurological exam: Present: alert, oriented X3, CN II-XII intact, normal gait - Psychiatric Psychiatric exam: Present: normal affect, normal mood. Absent: anxious, flat affect - Skin Skin exam: Present: warm, dry, intact, normal color. Absent: rash, cyanosis, diaphoretic ED Course Vital Signs 06/14/19 00:24 Temperature 98.9 F Pulse Rate 114 H Respiratory 20 Rate Blood Pressure 177/111 O2 Sat by Pulse 100 Oximetry ED Medical Decision Making - Lab Data Result diagrams: 06/14/19 01:28 06/14/19 01:28 - Medical Decision Making This patient presents with abdominal pain of unclear etiology. A CT scan was performed to evaluate for potential causes of the abdominal pain, however, neither the clinical exam nor the CT has identified an emergent etiology for the abdominal pain. Specifically, given the benign exam, the laboratory studies, and unremarkable CT, I have a very low suspicion for appendicitis, ischemic bowel, bowel perforation, or any other life threatening disease. I have discussed with the patient the level of uncertainty with undifferentiated abd ominal pain and clearly explained the need to follow-up as noted on the discharge instructions, or return to the Emergency Department immediately if the pain worsens, develops fever, persistent and uncontrollable vomiting, or for any new symptoms or concerns. Critical care attestation.: If time is entered above; I have spent that time in minutes in the direct care of this critically ill patient, excluding procedure time. ED Disposition Clinical Impression: Renal calculus, right Is pt being admited?: No Does the pt Need Aspirin: No Condition: Stable Instructions: Kidney Stones (ED) Prescriptions: Ciprofloxacin HCl [Ciprofloxacin TAB] 500 mg PO Q12HR #28 tab Tamsulosin [Flomax] 0.4 mg PO QDAY #10 cap traMADoL [Ultram] 50 mg PO Q6HR PRN #20 tablet PRN Reason: Pain Referrals: PRIMARY CARE, [Primary Care Provider] - 3-5 Days [facility] [Provider Group] - 3-5 Days
--- NOTE | 2019-06-14 03:09 | Cat Scan Report ---
CT scan of the abdomen and pelvis without contrast INDICATION: RT flank and right pelvic pain. TECHNIQUE: All CT scans at this location are performed using the following dose modulation technique: Automated exposure control. The lung bases are clear. No contrast is administered. COMPARISON: CT scan dated 01/08/2018 FINDINGS: Abdomen: There is mild dependent atelectasis in the lung bases. Liver, spleen, pancreas, adrenal glan ds, and small bowel show no acute abnormalities. There are tiny calyceal stones noted in the left kid kellie. There is mild right hydronephrosis. There is a 5 mm stone in the proximal third of the right ure ter. There are no other ureteral calculi. Pelvis: There is a relatively large amount of stool in the rectum and distal sigmoid colon. On review of bone windows, no acute osseous abnormalities are seen. IMPRESSION: 1. There is a 5 mm stone in the proximal third of the right ureter with mild right hydronephrosis. Th ere are very small calyceal stones noted in the left kidney. Signer Name: Donny Awad MD Signed: 06/14/2019 3:04 AM Workstation Name: [id number]
[2019-06-14 03:10] LABS: Bilirubin,Urine NEG (Negative); Blood,Urine MOD (Negative); Color,Urine Yellow (Yellow); Mucus,Urine 1+ /HPF
[2019-06-14 03:43] VITALS: BP 139/83
== END 2019-06-14 03:43 | disposition home or self-care (01) ==
LOC: ED 00:16
DX: N20.0 Calculus of kidney (principal); I10 Essential (primary) hypertension; Z79.899 Other long term (current) drug therapy
CPT/HCPCS: 36415; 74176; 80053; 81001; 83690; 85025

== ENCOUNTER 2019-10-07 01:58 | Emergency (ER) | payer OTHER ==
[2019-10-07 02:32] LABS: Basophils # (Auto) 0.1 K/mm3 (0.0-0.1); Basophils % (Auto) 0.8 % (0.0-1.8); Eosinophils # (Auto) 0.2 K/mm3 (0.0-0.4); Hematocrit 44.4 % (35.5-45.6); Hemoglobin 15.1 gm/dl (11.8-15.2); Lymphocytes # (Auto) 1.8 K/mm3 (1.2-5.4); Lymphocytes % (Auto) 26.5 % (13.4-35.0); Mean Corpuscular HGB Conc 34 % (32-34); Mean Corpuscular Volume 89 fl (84-94); Monocytes # (Auto) 0.7 K/mm3 (0.0-0.8); Monocytes % (Auto) 9.8 % (0.0-7.3); Platelet Count 303 K/mm3 (140-440); Red Cell Distribution Width 12.9 % (13.2-15.2)
[2019-10-07 02:56] LABS: Alanine Aminotransferase 28 units/L (7-56); Albumin 4.4 g/dL (3.9-5); BUN/Creatinine Ratio 23; Blood Urea Nitrogen 25 mg/dL (9-20); Calcium 9.5 mg/dL (8.4-10.2); Hemolysis Index 14
[2019-10-07 05:32] LABS: Bilirubin,Urine NEG (Negative); Blood,Urine NEG (Negative); Color,Urine Yellow (Yellow); Protein,Urine <15 mg/dL mg/dL (Negative); Urobilinogen,Urine < 2.0 mg/dL (<2.0); WBC,Urine < 1.0 /HPF (0.0-6.0)
[2019-10-07 06:14] VITALS: BP 133/91
[2019-10-07] MEDS ORDERED: ONDANSETRON 4 MG ODT TAB PO ONE (08:26)
--- NOTE | 2019-10-07 08:32 | Emergency Department Report ---
ED N/V/D HPI - General Chief complaint: Nausea/Vomiting/Diarrhea Stated complaint: VOMITTING Time Seen by Provider: 10/07/19 07:42 Source: patient Mode of arrival: Ambulatory Limitations: No Limitations - History of Present Illness Initial comments: 39-year-old -[place] male patient with history of hypertension presents with complaints of nausea and vomiting starting around 1 AM last night. Patient reports he ate some eggs around 11 PM and suddenly became nauseous 2 hours later with vomiting and no diarrhea. He denies any hematemesis/coffee-ground emesis, abdominal pain, fever/chills/sweats, cough, congestion, shortness of breath, or chest pain. Patient states he had 3-5 episodes of vomiting at once and has not had any further episodes since. He denies any current nausea and states he is feeling well. - Related Data Previous Rx's Medication Instructions Recorded Last Taken Type Hyoscyamine Subl [Levsin Sl] 0.125 mg SL Q4HR PRN #12 tablet 05/19/13 Unknown Rx Ondansetron [Zofran Odt] 4 mg PO QID #12 tab.rapdis 05/19/13 Unknown Rx Famotidine [Pepcid] 10 mg PO BID #20 tablet 06/08/13 Unknown Rx Metoclopramide HCl [Reglan] 10 mg PO TID PRN #20 tablet 06/09/13 Unknown Rx Acetaminophen/Codeine 1 tab PO Q6H PRN #15 tab 04/15/14 Unknown Rx [Acetaminophen-Codeine #3 TAB] Penicillin Vk [Veetids TAB] 500 mg PO BID #20 tablet 04/15/14 Unknown Rx Famotidine [Pepcid] 40 mg PO QDAY #5 tablet 01/13/17 Unknown Rx cephALEXin [Keflex] 500 mg PO Q12HR #14 cap 01/13/17 Unknown Rx hydrOXYzine HCL [Atarax] 25 mg PO Q6HR PRN #12 tablet 01/13/17 Unknown Rx predniSONE [Deltasone] 50 mg PO QDAY #5 tab 01/13/17 Unknown Rx Dicyclomine [Bentyl] 20 mg PO Q8H 3 Days #9 tablet 12/02/17 Unknown Rx Promethazine [Phenergan TAB] 25 mg PO Q8HR PRN #12 tab 12/02/17 Unknown Rx Acetaminophen/Codeine [Tylenol #3] 1 tab PO Q6H PRN #10 tab 12/24/17 Unknown Rx Ondansetron [Zofran TAB] 4 mg PO Q8HR PRN #20 tablet 12/24/17 Unknown Rx Ciprofloxacin HCl [Ciprofloxacin 500 mg PO Q12HR #28 tab 06/14/19 Unknown Rx TAB] Tamsulosin [Flomax] 0.4 mg PO QDAY #10 cap 06/14/19 Unknown Rx traMADoL [Ultram] 50 mg PO Q6HR PRN #20 tablet 06/14/19 Unknown Rx Ondansetron [Zofran ODT TAB] 4 mg PO Q6H PRN #12 tab.rapdis 10/07/19 Unknown Rx Allergies Allergy/AdvReac Type Severity Reaction Status Date / Time No Known Allergies Allergy Verified 10/07/19 02:11 ED Review of Systems ROS: Stated complaint: VOMITTING Other details as noted in HPI Constitutional: denies: chills, fever, malaise, weakness ENT: denies: throat pain Respiratory: denies: cough, shortness of breath Cardiovascular: denies: chest pain Gastrointestinal: nausea, vomiting. denies: abdominal pain, diarrhea, constipation, hematemesis, melena, hematochezia Musculoskeletal: denies: back pain, myalgia ED Past Medical Hx - Past Medical History Previous Medical History?: Yes Hx Hypertension: Yes Hx Diabetes: Yes (prediabetic) Hx Kidney Stones: Yes Additional medical history: allergies - Surgical History Past Surgical History?: Yes Additional Surgical History: kidney stones - Social History Smoking Status: Never Smoker Substance Use Type: None - Medications Home Medications: Home Medications Medication Instructions Recorded Confirmed Last Taken Type Hyoscyamine Subl [Levsin Sl] 0.125 mg SL Q4HR PRN #12 tablet 05/19/13 Unknown Rx Ondansetron [Zofran Odt] 4 mg PO QID #12 tab.rapdis 05/19/13 Unknown Rx Famotidine [Pepcid] 10 mg PO BID #20 tablet 06/08/13 Unknown Rx Metoclopramide HCl [Reglan] 10 mg PO TID PRN #20 tablet 06/09/13 Unknown Rx Acetaminophen/Codeine 1 tab PO Q6H PRN #15 tab 04/15/14 Unknown Rx [Acetaminophen-Codeine #3 TAB] Penicillin Vk [Veetids TAB] 500 mg PO BID #20 tablet 04/15/14 Unknown Rx Famotidine [Pepcid] 40 mg PO QDAY #5 tablet 01/13/17 Unknown Rx cephALEXin [Keflex] 500 mg PO Q12HR #14 cap 01/13/17 Unknown Rx hydrOXYzine HCL [Atarax] 25 mg PO Q6HR PRN #12 tablet 01/13/17 Unknown Rx predniSONE [Deltasone] 50 mg PO QDAY #5 tab 01/13/17 Unknown Rx Dicyclomine [Bentyl] 20 mg PO Q8H 3 Days #9 tablet 12/02/17 Unknown Rx Promethazine [Phenergan TAB] 25 mg PO Q8HR PRN #12 tab 12/02/17 Unknown Rx Acetaminophen/Codeine [Tylenol #3] 1 tab PO Q6H PRN #10 tab 12/24/17 Unknown Rx Ondansetron [Zofran TAB] 4 mg PO Q8HR PRN #20 tablet 12/24/17 Unknown Rx Ciprofloxacin HCl [Ciprofloxacin 500 mg PO Q12HR #28 tab 06/14/19 Unknown Rx TAB] Tamsulosin [Flomax] 0.4 mg PO QDAY #10 cap 06/14/19 Unknown Rx traMADoL [Ultram] 50 mg PO Q6HR PRN #20 tablet 06/14/19 Unknown Rx Ondansetron [Zofran ODT TAB] 4 mg PO Q6H PRN #12 tab.rapdis 10/07/19 Unknown Rx ED Physical Exam - General Limitations: No Limitations General appearance: alert, in no apparent distress - Head Head exam: Present: atraumatic, normocephalic - Eye Eye exam: Present: normal appearance. Absent: scleral icterus - Neck Neck exam: Present: full ROM - Respiratory Respiratory exam: Present: normal lung sounds bilaterally, respiratory distress - Cardiovascular Cardiovascular Exam: Present: regular rate, normal rhythm. Absent: systolic murmur, diastolic murmur, rubs, gallop - GI/Abdominal GI/Abdominal exam: Present: soft, normal bowel sounds. Absent: distended, tenderness, guarding, rebound, rigid - Back Exam Back exam: Present: full ROM - Neurological Exam Neurological exam: Present: alert, oriented X3 - Psychiatric Psychiatric exam: Present: normal affect, normal mood - Skin Skin exam: Present: warm, dry, intact, normal color. Absent: rash, cyanosis, diaphoretic, erythema, ecchymosis ED Course Vital Signs 10/07/19 10/07/19 02:10 06:13 Temperature 98.7 F 97.7 F Pulse Rate 100 H 88 Respiratory 18 16 Rate Blood Pressure 151/97 133/91 O2 Sat by Pulse 97 97 Oximetry ED Medical Decision Making - Lab Data Result diagrams: 10/07/19 02:22 10/07/19 02:22 Lab Results 10/07/19 10/07/19 10/07/19 Range/Units 02:22 02:22 05:17 WBC 6.7 (4.5-11.0) K/mm3 RBC 5.00 (3.65-5.03) M/mm3 Hgb 15.1 (11.8-15.2) gm/dl Hct 44.4 (35.5-45.6) % MCV 89 (84-94) fl MCH 30 (28-32) pg MCHC 34 (32-34) % RDW 12.9 L (13.2-15.2) % Plt Count 303 (140-440) K/mm3 Lymph % (Auto) 26.5 (13.4-35.0) % [place] % (Auto) 9.8 H (0.0-7.3) % Eos % (Auto) 3.0 (0.0-4.3) % Baso % (Auto) 0.8 (0.0-1.8) % Lymph # 1.8 (1.2-5.4) K/mm3 [place] # 0.7 (0.0-0.8) K/mm3 Eos # 0.2 (0.0-0.4) K/mm3 Baso # 0.1 (0.0-0.1) K/mm3 Seg Neutrophils % 59.9 (40.0-70.0) % Seg Neutrophils # 4.0 (1.8-7.7) K/mm3 Sodium 136 L (137-145) mmol/L Potassium 3.8 (3.6-5.0) mmol/L Chloride 97.4 L (98-107) mmol/L Carbon Dioxide 25 (22-30) mmol/L Anion Gap 17 mmol/L BUN 25 H (9-20) mg/dL Creatinine 1.1 (0.8-1.5) mg/dL Estimated GFR > 60 ml/min BUN/Creatinine Ratio 23 % Glucose 125 H (75-100) mg/dL Calcium 9.5 (8.4-10.2) mg/dL Total Bilirubin 0.20 (0.1-1.2) mg/dL AST 27 (5-40) units/L ALT 28 (7-56) units/L Alkaline Phosphatase 62 (35-129) units/L Total Protein 8.3 H (6.3-8.2) g/dL Albumin 4.4 (3.9-5) g/dL Albumin/Globulin Ratio 1.1 % Lipase 34 (13-60) units/L Urine Color Yellow (Yellow) Urine Turbidity Clear (Clear) Urine pH 6.0 (5.0-7.0) Ur Specific [place] 1.028 (1.003-1.030) Urine Protein <15 mg/dl (Negative) mg/dL Urine Glucose (UA) Neg (Negative) mg/dL Urine Ketones Neg (Negative) mg/dL Urine Blood Neg (Negative) Urine Nitrite Neg (Negative) Urine Bilirubin Neg (Negative) Urine Urobilinogen < 2.0 (<2.0) mg/dL Ur Leukocyte Esterase Neg (Negative) Urine WBC (Auto) < 1.0 (0.0-6.0) /HPF Urine RBC (Auto) 2.0 (0.0-6.0) /HPF - Medical Decision Making Patient presents with complaints of sudden onset of nausea and vomiting last night that occurred 2 hours after eating. Patient denies any further vomiting or other symptoms. His physical exam is benign he is well-appearing. No significant abnormalities are noted on his labs. Symptoms appear to be consiste nt with viral gastritis. Patient was given a Zofran and p.o. challenge with juice and crackers, patient tolerated this well without any vomiting noted. His vitals are normal and he is stable for discharge home. Discussed findings and plan of care with patient in detail who is agreeable. Recommend follow-up with primary care provider as needed. Strict return precautions were discussed in detail with patient who verbalized understanding. Critical care attestation.: If time is entered above; I have spent that time in minutes in the direct care of this critically ill patient, excluding procedure time. ED Disposition Clinical Impression: Viral gastritis Disposition: TO HOME OR SELFCARE Is pt being admited?: No Condition: Stable Instructions: Food Poisoning (ED) Prescriptions: Ondansetron [Zofran ODT TAB] 4 mg PO Q6H PRN #12 tab.rapdis PRN Reason: Nausea Referrals: PRIMARY CARE,MD [Primary Care Provider] - as needed Forms: Work/School Release Form(ED)
== END 2019-10-07 09:11 | disposition home or self-care (01) ==
LOC: ED 01:58
DX: A08.4 Viral intestinal infection, unspecified (principal); I10 Essential (primary) hypertension; R73.03 Prediabetes; Z98.890 Other specified postprocedural states; Z87.442 Personal history of urinary calculi; Z79.2 Long term (current) use of antibiotics; Z79.899 Other long term (current) drug therapy
CPT/HCPCS: 36415; 80053; 81001; 83690; 85025; Q0162

== ENCOUNTER 2019-12-02 18:16 | Emergency (ER) | payer OTHER ==
--- NOTE | 2019-12-02 19:34 | Event Note ---
ED Screening Note ED Screening Note: NASAL CONGESTION COUGH WEAK VAGUE COMPLAINTS- RESP This initial assessment/diagnostic orders/clinical plan/treatment(s) is/are subject to change based on patients health status, clinical progression and re- assessment by fellow clinical providers in the ED. Further treatment and workup at subsequent clinical providers discretion. Patient/guardian urged not to elope from the ED as their condition may be serious if not clinically assessed and managed. Initial orders include: XRAY
[2019-12-02 19:38] VITALS: BP 147/92
--- NOTE | 2019-12-02 20:23 | XRay Report ---
CHEST 2 VIEWS INDICATION / CLINICAL INFORMATION: Congestion and drowsiness. Nausea. COMPARISON: None available. FINDINGS: SUPPORT DEVICES: None. HEART / MEDIASTINUM: The heart size and pulmonary vasculature are normal. LUNGS / PLEURA: No significant pulmonary or pleural abnormality. No pneumothorax. ADDITIONAL FINDINGS: No significant additional findings. IMPRESSION: No acute findings. Signer Name: Pablo Brian MD Signed: 12/02/2019 8:19 PM Workstation Name: [id number]
--- NOTE | 2019-12-02 22:04 | Emergency Department Report ---
- General Chief Complaint: Nausea/Vomiting/Diarrhea Stated Complaint: WEAKNESS Time Seen by Provider: 12/02/19 19:34 Source: patient Mode of arrival: Ambulatory Limitations: No Limitations - History of Present Illness MD Complaint: rhinorrhea, nasal congestion, sinus pain -: Gradual, days(s) (2) Severity: mild Consistency: constant Improves With: nothing Worsens With: nothing Associated Symptoms: chills, rhinorrhea, nasal congestion, cough, nausea. denies: shortness of breath, abdominal pain, diarrhea, confusion, right sweats, weight loss Treatments Prior to Arrival: none - Related Data Previous Rx's Medication Instructions Recorded Last Taken Type Hyoscyamine Subl [Levsin Sl] 0.125 mg SL Q4HR PRN #12 tablet 05/19/13 Unknown Rx Ondansetron [Zofran Odt] 4 mg PO QID #12 tab.rapdis 05/19/13 Unknown Rx Famotidine [Pepcid] 10 mg PO BID #20 tablet 06/08/13 Unknown Rx Metoclopramide HCl [Reglan] 10 mg PO TID PRN #20 tablet 06/09/13 Unknown Rx Acetaminophen/Codeine 1 tab PO Q6H PRN #15 tab 04/15/14 Unknown Rx [Acetaminophen-Codeine #3 TAB] Penicillin Vk [Veetids TAB] 500 mg PO BID #20 tablet 04/15/14 Unknown Rx Famotidine [Pepcid] 40 mg PO QDAY #5 tablet 01/13/17 Unknown Rx cephALEXin [Keflex] 500 mg PO Q12HR #14 cap 01/13/17 Unknown Rx hydrOXYzine HCL [Atarax] 25 mg PO Q6HR PRN #12 tablet 01/13/17 Unknown Rx predniSONE [Deltasone] 50 mg PO QDAY #5 tab 01/13/17 Unknown Rx Dicyclomine [Bentyl] 20 mg PO Q8H 3 Days #9 tablet 12/02/17 Unknown Rx Promethazine [Phenergan TAB] 25 mg PO Q8HR PRN #12 tab 12/02/17 Unknown Rx Acetaminophen/Codeine [Tylenol #3] 1 tab PO Q6H PRN #10 tab 12/24/17 Unknown Rx Ondansetron [Zofran TAB] 4 mg PO Q8HR PRN #20 tablet 12/24/17 Unknown Rx Ciprofloxacin HCl [Ciprofloxacin 500 mg PO Q12HR #28 tab 06/14/19 Unknown Rx TAB] Tamsulosin [Flomax] 0.4 mg PO QDAY #10 cap 06/14/19 Unknown Rx traMADoL [Ultram] 50 mg PO Q6HR PRN #20 tablet 06/14/19 Unknown Rx Ondansetron [Zofran ODT TAB] 4 mg PO Q6H PRN #12 tab.rapdis 10/07/19 Unknown Rx Brompheniramine/Pseudoephed/Dm 5 ml PO TID #120 syrup 12/02/19 Unknown Rx [Yggydxyoox-Yweiirtbltt-Ka Syr] Allergies Allergy/AdvReac Type Severity Reaction Status Date / Time No Known Allergies Allergy Verified 10/07/19 02:11 ED Review of Systems ROS: Stated complaint: WEAKNESS Other details as noted in HPI Comment: All other systems reviewed and negative ED Past Medical Hx - Past Medical History Previous Medical History?: Yes Hx Hypertension: Yes Hx Diabetes: Yes (prediabetic) Hx Kidney Stones: Yes Additional medical history: allergies. gastritis. high cholestrol - Surgical History Past Surgical History?: Yes Additional Surgical History: kidney stones - Social History Smoking Status: Never Smoker Substance Use Type: None - Medications Home Medications: Home Medications Medication Instructions Recorded Confirmed Last Taken Type Hyoscyamine Subl [Levsin Sl] 0.125 mg SL Q4HR PRN #12 tablet 05/19/13 Unknown Rx Ondansetron [Zofran Odt] 4 mg PO QID #12 tab.rapdis 05/19/13 Unknown Rx Famotidine [Pepcid] 10 mg PO BID #20 tablet 06/08/13 Unknown Rx Metoclopramide HCl [Reglan] 10 mg PO TID PRN #20 tablet 06/09/13 Unknown Rx Acetaminophen/Codeine 1 tab PO Q6H PRN #15 tab 04/15/14 Unknown Rx [Acetaminophen-Codeine #3 TAB] Penicillin Vk [Veetids TAB] 500 mg PO BID #20 tablet 04/15/14 Unknown Rx Famotidine [Pepcid] 40 mg PO QDAY #5 tablet 01/13/17 Unknown Rx cephALEXin [Keflex] 500 mg PO Q12HR #14 cap 01/13/17 Unknown Rx hydrOXYzine HCL [Atarax] 25 mg PO Q6HR PRN #12 tablet 01/13/17 Unknown Rx predniSONE [Deltasone] 50 mg PO QDAY #5 tab 01/13/17 Unknown Rx Dicyclomine [Bentyl] 20 mg PO Q8H 3 Days #9 tablet 12/02/17 Unknown Rx Promethazine [Phenergan TAB] 25 mg PO Q8HR PRN #12 tab 12/02/17 Unknown Rx Acetaminophen/Codeine [Tylenol #3] 1 tab PO Q6H PRN #10 tab 12/24/17 Unknown Rx Ondansetron [Zofran TAB] 4 mg PO Q8HR PRN #20 tablet 12/24/17 Unknown Rx Ciprofloxacin HCl [Ciprofloxacin 500 mg PO Q12HR #28 tab 06/14/19 Unknown Rx TAB] Tamsulosin [Flomax] 0.4 mg PO QDAY #10 cap 06/14/19 Unknown Rx traMADoL [Ultram] 50 mg PO Q6HR PRN #20 tablet 06/14/19 Unknown Rx Ondansetron [Zofran ODT TAB] 4 mg PO Q6H PRN #12 tab.rapdis 10/07/19 Unknown Rx Brompheniramine/Pseudoephed/Dm 5 ml PO TID #120 syrup 12/02/19 Unknown Rx [Dermzehsdw-Okyghpelbuk-Gj Syr] ED Physical Exam - General Limitations: No Limitations General appearance: alert, in no apparent distress - Head Head exam: Present: atraumatic, normocephalic - Eye Eye exam: Present: normal appearance, PERRL, EOMI Pupils: Present: normal accommodation - ENT ENT exam: Present: normal exam, normal orophraynx, mucous membranes moist, TM's normal bilaterally, other (Nasal congestion sinus erythema some some sinus tenderness to percussion.) - Neck Neck exam: Present: normal inspection, full ROM - Respiratory Respiratory exam: Present: normal lung sounds bilaterally. Absent: respiratory distress, wheezes, rales, chest wall tenderness, accessory muscle use, decreased breath sounds - Cardiovascular Cardiovascular Exam: Present: regular rate, normal rhythm. Absent: systolic murmur, diastolic murmur, rubs, gallop - GI/Abdominal GI/Abdominal exam: Present: soft, normal bowel sounds. Absent: distended, tenderness, hyperactive bowel sounds, hypoactive bowel sounds, organomegaly - Rectal Rectal exam: Present: deferred - Extremities Exam Extremities exam: Present: normal inspection, normal capillary refill - Back Exam Back exam: Present: normal inspection. Absent: CVA tenderness (R), CVA tenderness (L), muscle spasm, paraspinal tenderness - Neurological Exam Neurological exam: Present: alert, oriented X3, CN II-XII intact. Absent: abnormal gait, motor sensory deficit - Psychiatric Psychiatric exam: Present: normal affect, normal mood. Absent: depressed, agitated, anxious, flat affect, manic - Skin Skin exam: Present: warm, dry, intact, normal color. Absent: rash ED Course Vital Signs 12/02/19 12/02/19 19:36 20:59 Temperature 99.0 F Pulse Rate 104 H Respiratory 16 Rate Blood Pressure 147/92 O2 Sat by Pulse 99 98 Oximetry ED Medical Decision Making - Medical Decision Making This 39-year-old patient presents with symptoms suspicious for likely viral upper respiratory tract infection. Differential includes bacterial pneumonia, sinusitis, allergic rhinitis, hyperactive airway disease, bronchitis. Do not suspect underlying Cardiopulmonary process. I considered but think unlikely dangerous cause of this patient symptoms to include acute coronary syndrome, CHF or COPD exacerbations, pneumonia, pneumothorax. Patient is nontoxic appearing and not in need of emergent medical intervention. Plan: Reassurance, reassessment, [id number] medications, discharge with PCP follow-up Critical care attestation.: If time is entered above; I have spent that time in minutes in the direct care of this critically ill patient, excluding procedure time. ED Disposition Clinical Impression: URI (upper respiratory infection) Disposition: DC-01 TO HOME OR SELFCARE Is pt being admited?: No Does the pt Need Aspirin: No Condition: Stable Instructions: Upper Respiratory Infection (ED) Prescriptions: Brompheniramine/Pseudoephed/Dm [Vsaxgkxznm-Eaxhisapoqi-Yi Syr] 5 ml PO TID #120 syrup Referrals: PRIMARY CARE, [Primary Care Provider] - 3-5 Days [facility] [Provider Group] - 3-5 Days
== END 2019-12-02 22:50 | disposition home or self-care (01) ==
LOC: ED 18:16
DX: J06.9 Acute upper respiratory infection, unspecified (principal); I10 Essential (primary) hypertension; E11.9 Type 2 diabetes mellitus without complications; E78.00 Pure hypercholesterolemia, unspecified; Z79.899 Other long term (current) drug therapy
CPT/HCPCS: 71046; 99283

== ENCOUNTER 2020-03-18 23:11 | Emergency (ER) | payer OTHER ==
[2020-03-19 00:35] VITALS: BP 140/95
[2020-03-19 01:04] LABS: Basophils # (Auto) 0.1 K/mm3 (0.0-0.1); Basophils % (Auto) 0.8 % (0.0-1.8); Eosinophils # (Auto) 0.2 K/mm3 (0.0-0.4); Eosinophils % (Auto) 2.5 % (0.0-4.3); Hematocrit 42.4 % (35.5-45.6); Hemoglobin 14.6 gm/dl (11.8-15.2); Lymphocytes # (Auto) 2.3 K/mm3 (1.2-5.4); Mean Corpuscular HGB Conc 35 % (32-34); Mean Corpuscular Volume 90 fl (84-94); Monocytes # (Auto) 0.7 K/mm3 (0.0-0.8); Monocytes % (Auto) 8.7 % (0.0-7.3); Platelet Count 293 K/mm3 (140-440); Red Blood Count 4.71 M/mm3 (3.65-5.03); Red Cell Distribution Width 13.4 % (13.2-15.2)
[2020-03-19 01:26] LABS: Bilirubin,Urine NEG (Negative); Blood,Urine NEG (Negative); Color,Urine Yellow (Yellow); Mucus,Urine FEW /HPF
[2020-03-19 01:26] LABS: Alanine Aminotransferase 26 units/L (7-56); Albumin 4.5 g/dL (3.9-5); BUN/Creatinine Ratio 14; Blood Urea Nitrogen 17 mg/dL (9-20); Calcium 9.7 mg/dL (8.4-10.2); Hemolysis Index 1
[2020-03-19] MEDS ORDERED: ONDANSETRON 4 MG ODT TAB PO ONE (01:39)
[2020-03-19] MEDS ORDERED: DICYCLOMINE 20 MG TAB PO ONE (01:40)
--- NOTE | 2020-03-19 02:05 | XRay Report ---
ABDOMEN 1 VIEW 1:58 AM INDICATION / CLINICAL INFORMATION: Abdominal pain. COMPARISON: None available. FINDINGS: TUBES / LINES: None. BOWEL GAS PATTERN: No significant abnormality. FREE AIR / EXTRALUMINAL GAS: None seen. ADDITIONAL FINDINGS: No significant additional findings. IMPRESSION: No acute abnormality. Signer Name: Pablo Brian MD Signed: 03/19/2020 2:01 AM Workstation Name: [id number]
--- NOTE | 2020-03-19 02:15 | Emergency Department Report ---
ED N/V/D HPI - General Chief complaint: Abdominal Pain Stated complaint: N/V Time Seen by Provider: 03/19/20 01:39 Source: patient Mode of arrival: Ambulatory Limitations: No Limitations - History of Present Illness Initial comments: Patient is a 39-year-old male who presents for abdominal pain with nausea vomiting x1 day, pt states I eat something that didn't agree with me. pt denies fever or chills, last n/v 6 hrs ago, pain is described as 3/10 aching cramping. Symptoms are relieved by nothing tried, symptoms are exacerbated by po intake. MD complaint: nausea, vomiting, abdominal pain Onset/Timin -: days(s) Description of Vomiting: food contents Associated Abdominal Pain: Yes (cramping) Location: [facility] Severity: moderate Pain Scale: 3 Quality: cramping Consistency: intermittent Improves with: none Worsens with: eating Associated Symptoms: nausea/vomiting - Related Data Previous Rx's Medication Instructions Recorded Last Taken Type Hyoscyamine Subl [Levsin Sl] 0.125 mg SL Q4HR PRN #12 tablet 05/19/13 Unknown Rx Ondansetron [Zofran Odt] 4 mg PO QID #12 tab.rapdis 05/19/13 Unknown Rx Famotidine [Pepcid] 10 mg PO BID #20 tablet 06/08/13 Unknown Rx Metoclopramide HCl [Reglan] 10 mg PO TID PRN #20 tablet 06/09/13 Unknown Rx Acetaminophen/Codeine 1 tab PO Q6H PRN #15 tab 04/15/14 Unknown Rx [Acetaminophen-Codeine #3 TAB] Penicillin Vk [Veetids TAB] 500 mg PO BID #20 tablet 04/15/14 Unknown Rx Famotidine [Pepcid] 40 mg PO QDAY #5 tablet 01/13/17 Unknown Rx cephALEXin [Keflex] 500 mg PO Q12HR #14 cap 01/13/17 Unknown Rx hydrOXYzine HCL [Atarax] 25 mg PO Q6HR PRN #12 tablet 01/13/17 Unknown Rx predniSONE [Deltasone] 50 mg PO QDAY #5 tab 01/13/17 Unknown Rx Dicyclomine [Bentyl] 20 mg PO Q8H 3 Days #9 tablet 12/02/17 Unknown Rx Promethazine [Phenergan TAB] 25 mg PO Q8HR PRN #12 tab 12/02/17 Unknown Rx Acetaminophen/Codeine [Tylenol #3] 1 tab PO Q6H PRN #10 tab 12/24/17 Unknown Rx Ondansetron [Zofran TAB] 4 mg PO Q8HR PRN #20 tablet 12/24/17 Unknown Rx Ciprofloxacin HCl [Ciprofloxacin 500 mg PO Q12HR #28 tab 06/14/19 Unknown Rx TAB] Tamsulosin [Flomax] 0.4 mg PO QDAY #10 cap 06/14/19 Unknown Rx traMADoL [Ultram] 50 mg PO Q6HR PRN #20 tablet 06/14/19 Unknown Rx Ondansetron [Zofran ODT TAB] 4 mg PO Q6H PRN #12 tab.rapdis 10/07/19 Unknown Rx Brompheniramine/Pseudoephed/Dm 5 ml PO TID #120 syrup 12/02/19 Unknown Rx [Plxhwaldvc-Wjbogstosph-Ur Syr] Dicyclomine [Bentyl] 10 mg PO QID PRN #30 capsule 03/19/20 Unknown Rx Ondansetron [Zofran Odt] 4 mg PO Q8HR PRN #12 tab.rapdis 03/19/20 Unknown Rx Allergies Allergy/AdvReac Type Severity Reaction Status Date / Time No Known Allergies Allergy Verified 10/07/19 02:11 ED Review of Systems ROS: Stated complaint: N/V Other details as noted in HPI Constitutional: denies: chills, fever Eyes: denies: eye pain, eye discharge, vision change ENT: denies: ear pain, throat pain Respiratory: denies: cough, shortness of breath, wheezing Cardiovascular: denies: chest pain, palpitations Endocrine: no symptoms reported Gastrointestinal: abdominal pain, nausea, vomiting. denies: diarrhea, constipation, hematemesis, melena Genitourinary: denies: urgency, dysuria, frequency, hematuria, discharge Musculoskeletal: denies: back pain, joint swelling, arthralgia Skin: denies: rash, lesions Neurological: denies: headache, weakness, paresthesias Psychiatric: denies: anxiety, depression Hematological/Lymphatic: denies: easy bleeding, easy bruising ED Past Medical Hx - Past Medical History Previous Medical History?: Yes Hx Hypertension: Yes Hx Diabetes: Yes (prediabetic) Hx Kidney Stones: Yes Additional medical history: allergies. gastritis. high cholestrol - Surgical History Past Surgical History?: Yes Additional Surgical History: kidney stones - Social History Smoking Status: Never Smoker Substance Use Type: None - Medications Home Medications: Home Medications Medication Instructions Recorded Confirmed Last Taken Type Hyoscyamine Subl [Levsin Sl] 0.125 mg SL Q4HR PRN #12 tablet 05/19/13 Unknown Rx Ondansetron [Zofran Odt] 4 mg PO QID #12 tab.rapdis 05/19/13 Unknown Rx Famotidine [Pepcid] 10 mg PO BID #20 tablet 06/08/13 Unknown Rx Metoclopramide HCl [Reglan] 10 mg PO TID PRN #20 tablet 06/09/13 Unknown Rx Acetaminophen/Codeine 1 tab PO Q6H PRN #15 tab 04/15/14 Unknown Rx [Acetaminophen-Codeine #3 TAB] Penicillin Vk [Veetids TAB] 500 mg PO BID #20 tablet 04/15/14 Unknown Rx Famotidine [Pepcid] 40 mg PO QDAY #5 tablet 01/13/17 Unknown Rx cephALEXin [Keflex] 500 mg PO Q12HR #14 cap 01/13/17 Unknown Rx hydrOXYzine HCL [Atarax] 25 mg PO Q6HR PRN #12 tablet 01/13/17 Unknown Rx predniSONE [Deltasone] 50 mg PO QDAY #5 tab 01/13/17 Unknown Rx Dicyclomine [Bentyl] 20 mg PO Q8H 3 Days #9 tablet 12/02/17 Unknown Rx Promethazine [Phenergan TAB] 25 mg PO Q8HR PRN #12 tab 12/02/17 Unknown Rx Acetaminophen/Codeine [Tylenol #3] 1 tab PO Q6H PRN #10 tab 12/24/17 Unknown Rx Ondansetron [Zofran TAB] 4 mg PO Q8HR PRN #20 tablet 12/24/17 Unknown Rx Ciprofloxacin HCl [Ciprofloxacin 500 mg PO Q12HR #28 tab 06/14/19 Unknown Rx TAB] Tamsulosin [Flomax] 0.4 mg PO QDAY #10 cap 06/14/19 Unknown Rx traMADoL [Ultram] 50 mg PO Q6HR PRN #20 tablet 06/14/19 Unknown Rx Ondansetron [Zofran ODT TAB] 4 mg PO Q6H PRN #12 tab.rapdis 10/07/19 Unknown Rx Brompheniramine/Pseudoephed/Dm 5 ml PO TID #120 syrup 12/02/19 Unknown Rx [Sdoacqkdjy-Vxsjeazgmnn-Sh Syr] Dicyclomine [Bentyl] 10 mg PO QID PRN #30 capsule 03/19/20 Unknown Rx Ondansetron [Zofran Odt] 4 mg PO Q8HR PRN #12 tab.rapdis 03/19/20 Unknown Rx ED Physical Exam - General Limitations: No Limitations General appearance: alert, in no apparent distress - Head Head exam: Present: atraumatic, normocephalic - Eye Eye exam: Present: normal appearance - ENT ENT exam: Present: mucous membranes moist - Neck Neck exam: Present: normal inspection, meningismus, full ROM. Absent: tenderness - Respiratory Respiratory exam: Present: normal lung sounds bilaterally. Absent: respiratory distress, wheezes, stridor, chest wall tenderness - Cardiovascular Cardiovascular Exam: Present: regular rate, normal rhythm, normal heart sounds. Absent: systolic murmur, diastolic murmur, rubs, gallop - GI/Abdominal GI/Abdominal exam: Present: soft, normal bowel sounds. Absent: distended, tenderness, guarding, rebound, rigid, bruit, hernia - Rectal Rectal exam: Present: deferred - Extremities Exam Extremities exam: Present: normal inspection, full ROM. Absent: tenderness - Back Exam Back exam: Present: normal inspection, full ROM. Absent: tenderness, CVA tenderness (R), CVA tenderness (L), vertebral tenderness - Neurological Exam Neurological exam: Present: alert, oriented X3 - Psychiatric Psychiatric exam: Present: normal affect, normal mood - Skin Skin exam: Present: warm, dry, intact, normal color. Absent: rash ED Course Vital Signs 03/19/20 00:30 Temperature 97.6 F Pulse Rate 92 H Respiratory 18 Rate Blood Pressure 140/95 O2 Sat by Pulse 98 Oximetry ED Medical Decision Making - Lab Data Result diagrams: 03/19/20 00:50 03/19/20 00:50 Labs 03/19/20 03/19/20 03/19/20 00:50 00:50 01:10 WBC 7.8 RBC 4.71 Hgb 14.6 Hct 42.4 MCV 90 MCH 31 MCHC 35 H RDW 13.4 Plt Count 293 Lymph % (Auto) 30.0 [place] % (Auto) 8.7 H Eos % (Auto) 2.5 Baso % (Auto) 0.8 Lymph # (Auto) 2.3 [place] # (Auto) 0.7 Eos # (Auto) 0.2 Baso # (Auto) 0.1 Seg Neutrophils % 58.0 Seg Neutrophils # 4.5 Sodium 142 Potassium 4.4 Chloride 103.3 Carbon Dioxide 25 Anion Gap 18 BUN 17 Creatinine 1.2 Estimated GFR > 60 BUN/Creatinine Ratio 14 Glucose 111 H Calcium 9.7 Total Bilirubin 0.20 AST 22 ALT 26 Alkaline Phosphatase 72 Total Protein 7.5 Albumin 4.5 Albumin/Globulin Ratio 1.5 Lipase 36 Urine Color Yellow Urine Turbidity Clear Urine pH 6.0 Ur Specific [place] 1.025 Urine Protein 30 mg/dl Urine Glucose (UA) Neg Urine Ketones Neg Urine Blood Neg Urine Nitrite Neg Urine Bilirubin Neg Urine Urobilinogen 4.0 Ur Leukocyte Esterase Neg Urine WBC (Auto) 1.0 Urine RBC (Auto) 1.0 U Epithel Cells (Auto) < 1.0 Urine Mucus Few - Radiology Data Radiology results: report reviewed, image reviewed KUB: normal no obstruction, nonspecific gas pattern, - Medical Decision Making KUB: normal no obstruction, nonspecific gas pattern, plan: Zofran,. Brentyl, hydrate follow up with pcp in 2-3 days. Critical care attestation.: If time is entered above; I have spent that time in minutes in the direct care of this critically ill patient, excluding procedure time. ED Disposition Clinical Impression: Abdominal pain Qualifiers: Abdominal location: left upper quadrant Qualified Code(s): R10.12 - Left upper quadrant pain Disposition: DC-01 TO HOME OR SELFCARE Is pt being admited?: No Does the pt Need Aspirin: No Condition: Stable Instructions: Abdominal Pain (ED) Prescriptions: Dicyclomine [Bentyl] 10 mg PO QID PRN #30 capsule PRN Reason: abdominal spasm Ondansetron [Zofran Odt] 4 mg PO Q8HR PRN #12 tab.rapdis PRN Reason: Nausea And Vomiting Referrals: ML CHANCE MD [Referring] - 3-5 Days Forms: Work/School Release Form(ED) Time of Disposition: 02:21
== END 2020-03-19 02:28 | disposition home or self-care (01) ==
LOC: ED 23:11
DX: R10.12 Left upper quadrant pain (principal); R11.2 Nausea with vomiting, unspecified; I10 Essential (primary) hypertension; E11.9 Type 2 diabetes mellitus without complications; Z98.890 Other specified postprocedural states; Z79.2 Long term (current) use of antibiotics; Z79.1 Long term (current) use of non-steroidal anti-inflammatories (NSAID); Z79.899 Other long term (current) drug therapy
CPT/HCPCS: 36415; 74018; 80053; 81001; 83690; 85025; Q0162

== ENCOUNTER 2020-04-13 22:51 | Emergency (ER) | payer OTHER ==
[2020-04-13 23:02] VITALS: BP 146/94
[2020-04-14] MEDS ORDERED: ONDANSETRON 4 MG/2 ML INJ IV ONE (01:17)
[2020-04-14] MEDS ORDERED: SODIUM CHLORIDE 0.9% 1000 ML 1,000 ML IV ONE (01:17)
[2020-04-14 01:40] LABS: Basophils % (Auto) 0.6 % (0.0-1.8); Eosinophils # (Auto) 0.1 K/mm3 (0.0-0.4); Eosinophils % (Auto) 2.2 % (0.0-4.3); Hematocrit 44.5 % (35.5-45.6); Lymphocytes # (Auto) 1.5 K/mm3 (1.2-5.4); Lymphocytes % (Auto) 36.7 % (13.4-35.0); Mean Corpuscular HGB Conc 34 % (32-34); Mean Corpuscular Volume 89 fl (84-94); Monocytes # (Auto) 0.5 K/mm3 (0.0-0.8); Monocytes % (Auto) 12.6 % (0.0-7.3); Platelet Count 267 K/mm3 (140-440); Red Blood Count 4.98 M/mm3 (3.65-5.03)
--- NOTE | 2020-04-14 01:52 | Emergency Department Report ---
ED N/V/D HPI - General Chief complaint: Nausea/Vomiting/Diarrhea Stated complaint: VOMITING Time Seen by Provider: 04/14/20 00:38 Source: patient Mode of arrival: Ambulatory Limitations: No Limitations - History of Present Illness Initial comments: Patient is a 39-year-old male with history of diabetes hypertension and kidney stones, pt states 08/28 symptoms are exacerbated bp po intake , symptoms are relieved by nothing tried. Patient states nocturnal fever ,no fever noted in triage tonight disease. Abdominal cramping spasms rated at 3/10, MD complaint: nausea, vomiting, diarrhea Onset/Timin -: days(s) - Related Data Previous Rx's Medication Instructions Recorded Last Taken Type Hyoscyamine Subl [Levsin Sl] 0.125 mg SL Q4HR PRN #12 tablet 05/19/13 Unknown Rx Ondansetron [Zofran Odt] 4 mg PO QID #12 tab.rapdis 05/19/13 Unknown Rx Famotidine [Pepcid] 10 mg PO BID #20 tablet 06/08/13 Unknown Rx Metoclopramide HCl [Reglan] 10 mg PO TID PRN #20 tablet 06/09/13 Unknown Rx Acetaminophen/Codeine 1 tab PO Q6H PRN #15 tab 04/15/14 Unknown Rx [Acetaminophen-Codeine #3 TAB] Penicillin Vk [Veetids TAB] 500 mg PO BID #20 tablet 04/15/14 Unknown Rx Famotidine [Pepcid] 40 mg PO QDAY #5 tablet 01/13/17 Unknown Rx cephALEXin [Keflex] 500 mg PO Q12HR #14 cap 01/13/17 Unknown Rx hydrOXYzine HCL [Atarax] 25 mg PO Q6HR PRN #12 tablet 01/13/17 Unknown Rx predniSONE [Deltasone] 50 mg PO QDAY #5 tab 01/13/17 Unknown Rx Dicyclomine [Bentyl] 20 mg PO Q8H 3 Days #9 tablet 12/02/17 Unknown Rx Promethazine [Phenergan TAB] 25 mg PO Q8HR PRN #12 tab 12/02/17 Unknown Rx Acetaminophen/Codeine [Tylenol #3] 1 tab PO Q6H PRN #10 tab 12/24/17 Unknown Rx Ondansetron [Zofran TAB] 4 mg PO Q8HR PRN #20 tablet 12/24/17 Unknown Rx Ciprofloxacin HCl [Ciprofloxacin 500 mg PO Q12HR #28 tab 06/14/19 Unknown Rx TAB] Tamsulosin [Flomax] 0.4 mg PO QDAY #10 cap 06/14/19 Unknown Rx traMADoL [Ultram] 50 mg PO Q6HR PRN #20 tablet 06/14/19 Unknown Rx Ondansetron [Zofran ODT TAB] 4 mg PO Q6H PRN #12 tab.rapdis 10/07/19 Unknown Rx Brompheniramine/Pseudoephed/Dm 5 ml PO TID #120 syrup 12/02/19 Unknown Rx [Ylsqximkwp-Xnigixcocge-Nh Syr] Dicyclomine [Bentyl] 10 mg PO QID PRN #30 capsule 03/19/20 Unknown Rx Ondansetron [Zofran Odt] 4 mg PO Q8HR PRN #12 tab.rapdis 03/19/[address] (Nf) 50 mg PO TID PRN #30 tab 04/14/20 Unknown Rx Menthol/Camphor [[place] 1 applicatio TP QID PRN #1 tube 04/14/20 Unknown Rx Ointment] methOCARBAMOL [Robaxin TAB] 500 mg PO BID PRN #30 tablet 04/14/20 Unknown Rx predniSONE [Deltasone] 40 mg PO DAILY 5 Days #10 tablet 04/14/20 Unknown Rx Allergies Allergy/AdvReac Type Severity Reaction Status Date / Time No Known Allergies Allergy Verified 10/07/19 02:11 ED Review of Systems ROS: Stated complaint: VOMITING Other details as noted in HPI Constitutional: malaise. denies: chills, fever Eyes: denies: eye pain, eye discharge, vision change ENT: denies: ear pain, throat pain Respiratory: denies: cough, shortness of breath, wheezing Cardiovascular: denies: chest pain, palpitations Endocrine: no symptoms reported Gastrointestinal: nausea, vomiting, diarrhea Genitourinary: denies: urgency, dysuria, frequency, hematuria, discharge Musculoskeletal: denies: back pain, joint swelling, arthralgia Skin: denies: rash, lesions Neurological: denies: headache, weakness, paresthesias Psychiatric: denies: anxiety, depression Hematological/Lymphatic: denies: easy bleeding, easy bruising ED Past Medical Hx - Past Medical History Hx Hypertension: Yes Hx Diabetes: Yes (prediabetic) Hx Kidney Stones: Yes Additional medical history: allergies. gastritis. high cholestrol - Surgical History Additional Surgical History: kidney stones - Social History Smoking Status: Never Smoker Substance Use Type: None - Medications Home Medications: Home Medications Medication Instructions Recorded Confirmed Last Taken Type Hyoscyamine Subl [Levsin Sl] 0.125 mg SL Q4HR PRN #12 tablet 05/19/13 Unknown Rx Ondansetron [Zofran Odt] 4 mg PO QID #12 tab.rapdis 05/19/13 Unknown Rx Famotidine [Pepcid] 10 mg PO BID #20 tablet 06/08/13 Unknown Rx Metoclopramide HCl [Reglan] 10 mg PO TID PRN #20 tablet 06/09/13 Unknown Rx Acetaminophen/Codeine 1 tab PO Q6H PRN #15 tab 04/15/14 Unknown Rx [Acetaminophen-Codeine #3 TAB] Penicillin Vk [Veetids TAB] 500 mg PO BID #20 tablet 04/15/14 Unknown Rx Famotidine [Pepcid] 40 mg PO QDAY #5 tablet 01/13/17 Unknown Rx cephALEXin [Keflex] 500 mg PO Q12HR #14 cap 01/13/17 Unknown Rx hydrOXYzine HCL [Atarax] 25 mg PO Q6HR PRN #12 tablet 01/13/17 Unknown Rx predniSONE [Deltasone] 50 mg PO QDAY #5 tab 01/13/17 Unknown Rx Dicyclomine [Bentyl] 20 mg PO Q8H 3 Days #9 tablet 12/02/17 Unknown Rx Promethazine [Phenergan TAB] 25 mg PO Q8HR PRN #12 tab 12/02/17 Unknown Rx Acetaminophen/Codeine [Tylenol #3] 1 tab PO Q6H PRN #10 tab 12/24/17 Unknown Rx Ondansetron [Zofran TAB] 4 mg PO Q8HR PRN #20 tablet 12/24/17 Unknown Rx Ciprofloxacin HCl [Ciprofloxacin 500 mg PO Q12HR #28 tab 06/14/19 Unknown Rx TAB] Tamsulosin [Flomax] 0.4 mg PO QDAY #10 cap 06/14/19 Unknown Rx traMADoL [Ultram] 50 mg PO Q6HR PRN #20 tablet 01/25/20 Unknown Rx Ondansetron [Zofran ODT TAB] 4 mg PO Q6H PRN #12 tab.rapdis 10/07/19 Unknown Rx Brompheniramine/Pseudoephed/Dm 5 ml PO TID #120 syrup 12/02/19 Unknown Rx [Omcerwbrnt-Czyvlnrsnih-Gb Syr] Dicyclomine [Bentyl] 10 mg PO QID PRN #30 capsule 03/19/20 Unknown Rx Ondansetron [Zofran Odt] 4 mg PO Q8HR PRN #12 tab.rapdis 03/19/[address] (Nf) 50 mg PO TID PRN #30 tab 04/14/20 Unknown Rx Menthol/Camphor [[place] 1 applicatio TP QID PRN #1 tube 04/14/20 Unknown Rx Ointment] methOCARBAMOL [Robaxin TAB] 500 mg PO BID PRN #30 tablet 04/14/20 Unknown Rx predniSONE [Deltasone] 40 mg PO DAILY 5 Days #10 tablet 04/14/20 Unknown Rx ED Physical Exam - General Limitations: No Limitations General appearance: alert, in no apparent distress - Head Head exam: Present: atraumatic, normocephalic - Eye Eye exam: Present: normal appearance, EOMI Pupils: Present: normal accommodation - ENT ENT exam: Present: normal orophraynx, mucous membranes moist, normal external ear exam. Absent: normal exam - Neck Neck exam: Present: normal inspection, full ROM. Absent: tenderness, lymphadenopathy - Respiratory Respiratory exam: Present: normal lung sounds bilaterally. Absent: respiratory distress, wheezes, stridor, chest wall tenderness - Cardiovascular Cardiovascular Exam: Present: regular rate, normal rhythm, normal heart sounds. Absent: systolic murmur, diastolic murmur, rubs, gallop - GI/Abdominal GI/Abdominal exam: Present: soft, normal bowel sounds. Absent: distended, tenderness, guarding, rebound, rigid, bruit, hernia - Rectal Rectal exam: Present: deferred - exam: Present: normal inspection, scrotal swelling, vertical testicular lie - Extremities Exam Extremities exam: Present: normal inspection - Back Exam Back exam: Present: normal inspection, full ROM. Absent: tenderness, CVA tenderness (R), CVA tenderness (L) - Neurological Exam Neurological exam: Present: alert, oriented X3, CN II-XII intact, normal gait, reflexes normal - Psychiatric Psychiatric exam: Present: normal affect, normal mood, depressed - Skin Skin exam: Present: warm, dry, intact, normal color. Absent: rash ED Course Vital Signs 04/13/20 23:00 Temperature 98.5 F Pulse Rate 110 H Respiratory 18 Rate Blood Pressure 146/94 O2 Sat by Pulse 100 Oximetry ED Medical Decision Making - Lab Data Result diagrams: 04/14/20 01:20 04/14/20 01:20 Lab Results 04/14/20 04/14/20 Range/Units 01: 01:20 WBC 4.2 L (4.5-11.0) K/mm3 RBC 4.98 (3.65-5.03) M/mm3 Hgb 15.0 (11.8-15.2) gm/dl Hct 44.5 (35.5-45.6) % MCV 89 (84-94) fl MCH 30 (28-32) pg MCHC 34 (32-34) % RDW 13.0 L (13.2-15.2) % Plt Count 267 (140-440) K/mm3 Lymph % (Auto) 36.7 H (13.4-35.0) % [place] % (Auto) 12.6 H (0.0-7.3) % Eos % (Auto) 2.2 (0.0-4.3) % Baso % (Auto) 0.6 (0.0-1.8) % Lymph # (Auto) 1.5 (1.2-5.4) K/mm3 [place] # (Auto) 0.5 (0.0-0.8) K/mm3 Eos # (Auto) 0.1 (0.0-0.4) K/mm3 Baso # (Auto) 0.0 (0.0-0.1) K/mm3 Seg Neutrophils % 47.9 (40.0-70.0) % Seg Neutrophils # 2.0 (1.8-7.7) K/mm3 Sodium 135 L (137-145) mmol/L Potassium 3.9 (3.6-5.0) mmol/L Chloride TNR Carbon Dioxide 25 (22-30) mmol/L Anion Gap 18 mmol/L BUN 17 (9-20) mg/dL Creatinine 1.0 (0.8-1.3) mg/dL Estimated GFR > 60 ml/min BUN/Creatinine Ratio 17 % Glucose 98 (75-100) mg/dL Calcium 9.1 (8.4-10.2) mg/dL Total Bilirubin 0.30 (0.1-1.2) mg/dL AST 69 H (5-40) units/L ALT 40 (7-56) units/L Alkaline Phosphatase 69 (35-129) units/L Total Protein 8.0 (6.3-8.2) g/dL Albumin 4.6 (3.9-5) g/dL Albumin/Globulin Ratio 1.4 % Lipase 31 (13-60) units/L - EKG Data EKG shows normal: sinus rhythm, axis, intervals, QRS complexes Rate: normal - EKG Data When compared to previous EKG there are: previous EKG unavailable Interpretation: normal EKG (normal ekg no STEMI , ekg interp by ed attending. ) - Radiology Data Radiology results: report reviewed, image reviewed - Medical Decision Making EKG is normal no ST elevated [place] EKG interpreted by ED attending, Pain is improved, patient will be DC'd to home in stable condition discharge plan includes, arthralgia, upper extremity radiculopathy, treat with NSAIDs, analgesic balm, short burst steroids, patient will follow-up with primary care doctor in 2 to 3 days. Patient verbalizes agreement and understanding with discharge plan patient DC'd home in stable condition at this time Critical care attestation.: If time is entered above; I have spent that time in minutes in the direct care of this critically ill patient, excluding procedure time. ED Disposition Clinical Impression: Radiculopathy affecting upper extremity Neck strain Qualifiers: Encounter type: initial encounter Qualified Code(s): S16.1XXA - Strain of muscle, fascia and tendon at neck level, initial encounter Disposition: DC-01 TO HOME OR SELFCARE Is pt being admited?: No Does the pt Need Aspirin: No Condition: Stable Instructions: Radicular Pain, Cervical Strain and Sprain Rehab-SportsMed Prescriptions: predniSONE [Deltasone] 40 mg PO DAILY 5 Days #[address] (Nf) 50 mg PO TID PRN #30 tab PRN Reason: pain methOCARBAMOL [Robaxin TAB] 500 mg PO BID PRN #30 tablet PRN Reason: Muscle Spasm Menthol/Camphor [[place] Ointment] 1 applicatio TP QID PRN #1 tube PRN Reason: pain Referrals: PRIMARY CARE, [Primary Care Provider] - 3-5 Days MERARY FLYNN MD [Staff Physician] - 3-5 Days Forms: Work/School Release Form(ED) Time of Disposition: 06:22
[2020-04-14 02:10] LABS: Alanine Aminotransferase 40 units/L (7-56); Albumin 4.6 g/dL (3.9-5); BUN/Creatinine Ratio 17; Blood Urea Nitrogen 17 mg/dL (9-20); Calcium 9.1 mg/dL (8.4-10.2); Hemolysis Index 34
[2020-04-14 06:13] LABS: Bilirubin,Urine NEG (Negative); Blood,Urine NEG (Negative); Color,Urine Yellow (Yellow); Mucus,Urine FEW /HPF; Protein,Urine <15 mg/dL mg/dL (Negative); Urobilinogen,Urine < 2.0 mg/dL (<2.0); WBC,Urine < 1.0 /HPF (0.0-6.0)
== END 2020-04-14 06:50 | disposition home or self-care (01) ==
LOC: ED 22:51
DX: S16.1XXA Strain of muscle, fascia and tendon at neck level, initial encounter (principal); I10 Essential (primary) hypertension; N20.0 Calculus of kidney; Z79.899 Other long term (current) drug therapy; X58.XXXA Exposure to other specified factors, initial encounter; Y93.89 Activity, other specified; Y92.89 Other specified places as the place of occurrence of the external cause; Y99.8 Other external cause status
CPT/HCPCS: 36415; 80053; 81001; 83690; 85025; 96361; 96374; 99283; J2405; J7030